=== PATIENT | female | born 1930 | race Hispanic/Latino ===

== ENCOUNTER 2016-10-25 11:39 | Emergency (ER) | payer MEDICARE, BC ==
[2016-10-25] MEDS ORDERED: Sodium Chloride 0.9% 1,000 ML IV STA (12:06)
--- NOTE | 2016-10-25 12:26 | ED PDOC ---
Syncope/Near Syncope/Dizziness Time Seen by Provider: 10/25/16 12:01 Chief Complaint (Nursing): Dizziness/Lightheaded Chief Complaint (Provider): dizzy History Per: Patient History/Exam Limitations: no limitations Onset/Duration Of Symptoms: Days (3), Intermittent Episodes Current Symptoms Are (Timing): Intermittent Episodes Activity At Onset Of Symptoms: Standing Associated Symptoms Preceding Syncopal Episode: Lightheadedness, Worse With Standing, Vertigo Worse With Change In Head Position Seizure Or Post-ictal Symptoms: None Possible Causative Factor(s): Lightheaded W/Change In Head Position Fall Associated With With Symptoms: No Severity: Moderate Additional Complaint(s): 86yo female c/o dizziness described as "almost passed out" with some element of motion/ room spinning. States feels similar to how she felt before her pacemaker was placed several years ago. She has been taking ultracet and took an extra dose of coreg today due to symptoms. States had mild chest discomfort yesterday, denies SOB, abdominal pain or fever. Has chronic lower extremity pains for which ambulating is becoming more difficult and now feels unsteady on her legs. Past Medical History Reviewed: Historical Data, Nursing Documentation, Vital Signs Vital Signs: Last Vital Signs Temp 99.3 F 10/25/16 11:48 Pulse 70 10/25/16 11:48 Resp 18 10/25/16 11:48 BP 161/107 H 10/25/16 11:48 Pulse Ox 100 10/25/16 11:48 - Medical History PMH: Arthritis, Cardia Arrhythmia, HTN - Surgical History Surgical History: Denies: CABG Other surgeries: pacer, port placement, hysterectomy, other abdominal surgeries ; denies CABG - Family History Family History: States: Unknown Family Hx - Social History Current smoker - smoking cessation education provided: No - Home Medications Home Medications: Ambulatory Orders Medication Instructions Recorded Aspirin [Ecotrin] 81 mg PO DAILY 10/25/16 Carvedilol [Coreg Cr] 40 mg PO DAILY 10/25/16 Ergocalciferol (Vitamin D2) 50,000 unit PO TH 10/25/16 [Vitamin D2] Fesoterodine Fumarate [Toviaz] 4 mg PO DAILY 10/25/16 Latanoprost [Xalatan] 1 drop EACHEYE HS 10/25/16 Linagliptin [Tradjenta] 5 mg PO DAILY 10/25/16 Lisinopril [Zestril] 20 mg PO DAILY 10/25/16 Rosuvastatin Calcium [Crestor] 10 mg PO DAILY 10/25/16 traMADol/Acetaminophen [Ultracet 1 tab PO TID 10/25/16 37.5/325 mg] - Allergies Allergies/Adverse Reactions: Allergies Allergy/AdvReac Type Severity Reaction Status Date / Time Penicillins Allergy RASH Verified 10/25/16 11:48 Review of Systems Constitutional: Positive for: Weakness, Malaise. Negative for: Fever, Chills ENT: Negative for: Ear Discharge, Throat Pain Cardiovascular: Positive for: Palpitations, Light Headedness. Negative for: Chest Pain, Orthopnea Respiratory: Negative for: Cough, Shortness of Breath, Hemoptysis Gastrointestinal: Positive for: Nausea. Negative for: Vomiting, Abdominal Pain , Diarrhea Genitourinary Female: Negative for: Dysuria, Frequency, Hematuria Musculoskeletal: Positive for: Arm Pain, Back Pain, Leg Pain. Negative for: Neck Pain, Shoulder Pain Skin: Negative for: Rash, Lesions, Jaundice Neurological: Positive for: Weakness (generalized), Dizziness. Negative for: Numbness, Change in Speech, Confusion, Altered Mental Status, Headache Psych: Positive for: Anxiety. Negative for: Depression Physical Exam - Reviewed Nursing Documentation Reviewed: Yes Vital Signs Reviewed: Yes - Physical Exam Appears: Positive for: Well, Non-toxic, No Acute Distress Head Exam: Positive for: ATRAUMATIC, NORMAL INSPECTION, NORMOCEPHALIC Skin: Positive for: Normal Color, Warm, DRY Eye Exam: Positive for: EOMI, Normal appearance, PERRL ENT: Positive for: Normal ENT Inspection Neck: Positive for: Normal, Painless ROM Cardiovascular/Chest: Positive for: Regular Rate, Rhythm Respiratory: Positive for: CNT, Normal Breath Sounds Gastrointestinal/Abdominal: Positive for: Normal Exam, Bowel Sounds, Soft Back: Positive for: Normal Inspection Extremity: Positive for: Normal ROM Neurologic/Psych: Positive for: Alert, Oriented - Laboratory Results Result Diagrams: 10/25/16 12:50 10/25/16 12:50 - ECG ECG: Positive for: Interpreted By Me ECG Rhythm: Positive for: Nonspecific Changes Interpretation Of Abn EKG: ventric paced 70bpm O2 Sat by Pulse Oximetry: 100 Pulse Ox Interpretation: Normal - CT Scan/US CT brain Other Rad Studies (CT/US): Radiology Report Reviewed (neg for bleed, + chronic changes) Medical Decision Making Medical Decision Making: CT brain, labs and EKG ordered. Gentle IVF and meclizine trial ordered. labs reviewed, no clinically significant abnormalities. Ambulated in ED w resolution of symptoms. States has chronic pains to lower extremities which makes her at chronic risk of falls. D/w PMD Dr Horn states ok for discharge, she often has c/o dizziness and he will see her in office sunday. Pt agrees w plan. Family member Prashanth in ED, will accompany home. Disposition - Clinical Impression Clinical Impression: Dizziness - Disposition Referrals: Ramsey Horn MD [Family Provider] - Condition: STABLE Additional Instructions: Return to ER for any new or worsening symptoms. Instructions: Lightheadedness (ED), Dizziness (ED)
[2016-10-25 12:59] LABS: BASO % 0.2 % (0.0-2.0); HEMOGLOBIN 13.8 g/dL (12.0-16.0); LYMPH # 1.4 K/uL (1.0-4.3); LYMPH % 15.5 % (20.0-40.0); MEAN CELL VOLUME 89.4 fl (81.0-99.0); MEAN CORPUSCULAR HEMOGLOBIN 29.5 pg (27.0-31.0); MEAN PLATELET VOLUME 8.8 fl (7.2-11.7); MONO # 0.8 K/uL (0.0-0.8); MONO % 8.6 % (0.0-10.0); NEUT # 6.7 K/uL (1.8-7.0); NEUT % 75.7 % (50.0-75.0); RBC 4.67 Mil/uL (3.80-5.20); RED CELL DISTRIBUTION WIDTH 14.3 % (11.5-14.5); WHITE BLOOD COUNT 8.8 K/uL (4.8-10.8)
[2016-10-25 13:15] LABS: ALB/GLOB RATIO 1.3 (1.0-2.1); ALBUMIN 4.2 g/dL (3.5-5.0); ALT/SGPT 32 U/L (9-52); AST/SGOT 20 U/L (14-36); BLOOD UREA NITROGEN 17 mg/dl (7-17); CALCIUM 9.8 mg/dL (8.4-10.2); GFR AFRICAN-AMERICAN > 60; GFR NON-AFRICAN AMERICAN 59
[2016-10-25 13:24] LABS: B-TYPE NATRIURETIC PEPTIDE 788 pg/ml (0-900); INR 1.1 (0.9-1.2); PARTIAL THROMBOPLASTIN TIME 28.4 Seconds (25.6-37.1); PROTHROMBIN TIME 12.8 Seconds (9.8-13.1)
--- NOTE | 2016-10-25 13:45 | CT ---
PROCEDURE: CT HEAD WITHOUT CONTRAST. HISTORY: r/o ICH COMPARISON: None available. TECHNIQUE: Axial computed tomography images were obtained through the head/brain without intravenous contrast. Radiation dose: Total exam DLP = 767.27 mGy-cm. This CT exam was performed using one or more of the following dose reduction techniques: Automated exposure control, adjustment of the mA and/or kV according to patient size, and/or use of iterative reconstruction technique. FINDINGS: HEMORRHAGE: No intracranial hemorrhage. BRAIN: There are mild chronic microangiopathic changes. There is no mass, mass effect or abnormal extra-axial fluid collection. VENTRICLES: There is moderate age-related global parenchymal volume loss and proportionate enlargement of the ventricles and cortical sulci. CALVARIUM: The skull base and calvarium are normal. PARANASAL SINUSES: Predominantly clear. MASTOID AIR CELLS: Predominantly clear. OTHER FINDINGS: None. IMPRESSION: No acute intracranial abnormality. Mild chronic microangiopathic changes and mild age-related global parenchymal volume loss.
--- NOTE | 2016-10-25 14:02 | RAD ---
HISTORY: Dizziness COMPARISON: No prior. TECHNIQUE: Chest PA and lateral FINDINGS: LUNGS: There is mild pulmonary venous congestion. No focal consolidation. PLEURA: No significant pleural effusion identified. No pneumothorax apparent. CARDIOVASCULAR: The heart is normal in size. There is a right-sided dual lead transvenous permanent pacing device. OSSEOUS STRUCTURES: No significant abnormalities. VISUALIZED UPPER ABDOMEN: Normal. OTHER FINDINGS: None. IMPRESSION: Mild pulmonary venous congestion. No focal consolidation.
[2016-10-25 15:48] LABS: SQUAMOUS EPITHIAL 4 /hpf (0-5); URINE BACTERIA MANY (<OCC); URINE BILIRUBIN NEGATIVE (NEGATIVE); URINE BLOOD LARGE (NEGATIVE); URINE CLARITY CLOUDY (Clear); URINE COLOR YELLOW (YELLOW); URINE GLUCOSE (UA) NEG (Normal); URINE LEUKOCYTE ESTERASE LARGE Leu/uL (Negative); URINE NITRATE NEGATIVE (NEGATIVE); URINE PROTEIN 30 mg/dL (NEGATIVE); URINE UROBILINOGEN 0.2-1.0 mg/dL (0.2-1.0)
--- NOTE | 2016-10-25 16:11 | CARD ---
APPROVED REPORT EKG Measurement Heart [id number] [id number] <Conclusion> Sinus rhythm with complete heart block and Ventricular-paced rhythm Abnormal ECG
[2016-10-25 16:25] VITALS: BP 129/76; PULSE 81; RESP 16; TEMP 97.9; O2SAT 97
== END 2016-10-25 16:25 | disposition home or self-care (01) ==
LOC: H.ER 11:39
DX: R42 Dizziness and giddiness (principal)
CPT/HCPCS: 70450; 71020; 80053; 81003; 82948; 83880; 84484; 85025; 85610; 85730; 93005; 99282; J7040

== ENCOUNTER 2017-04-30 06:49 | Inpatient (IN) | payer MEDICARE, BC ==
--- NOTE | 2017-04-30 07:31 | ED PDOC ---
HPI: Chest Pain Time Seen by Provider: 04/30/17 07:11 Chief Complaint (Nursing): Chest Pain Chief Complaint (Provider): Chest Pain History Per: Patient History/Exam Limitations: no limitations Onset/Duration Of Symptoms: Days (x 1) Current Symptoms Are (Timing): Still Present Quality: Pressure Additional Complaint(s): 86 year old female with history of HTN s/p pacemaker placement presents to the ED complaining of chest pain, onset last night. She describes the pain as pressure like and spreading across her chest. Patient states she is due for a battery change in her pacemaker. Denies shortness of breath and dizziness. PMD: Dr. Ramsey Horn MD Past Medical History Reviewed: Historical Data, Nursing Documentation, Vital Signs Vital Signs: Last Vital Signs Temp 97.6 F 04/30/17 08:15 Pulse 113 H 04/30/17 08:44 Resp 20 04/30/17 08:44 BP 143/65 04/30/17 08:44 Pulse Ox 95 04/30/17 08:47 - Medical History PMH: Arthritis, Cardia Arrhythmia, HTN - Surgical History Surgical History: Pacemaker Denies: CABG - Family History Family History: States: Unknown Family Hx - Home Medications Home Medications: Ambulatory Orders Medication Instructions Recorded Aspirin [Ecotrin] 81 mg PO DAILY 10/25/16 Carvedilol [Coreg Cr] 40 mg PO DAILY 10/25/16 Ergocalciferol (Vitamin D2) 50,000 unit PO TH 10/25/16 [Vitamin D2] Fesoterodine Fumarate [Toviaz] 4 mg PO DAILY 10/25/16 Latanoprost [Xalatan] 1 drop EACHEYE HS 10/25/16 Linagliptin [Tradjenta] 5 mg PO DAILY 10/25/16 Lisinopril [Zestril] 20 mg PO DAILY 10/25/16 Rosuvastatin Calcium [Crestor] 10 mg PO DAILY 10/25/16 traMADol/Acetaminophen [Ultracet 1 tab PO TID 10/25/16 37.5/325 mg] - Allergies Allergies/Adverse Reactions: Allergies Allergy/AdvReac Type Severity Reaction Status Date / Time Penicillins Allergy RASH Verified 10/25/16 11:48 Review of Systems ROS Statement: Except As Marked, All Systems Reviewed And Found Negative Cardiovascular: Positive for: Chest Pain Respiratory: Negative for: Shortness of Breath Neurological: Negative for: Dizziness Physical Exam - Reviewed Nursing Documentation Reviewed: Yes Vital Signs Reviewed: Yes - Physical Exam Appears: Positive for: Non-toxic, No Acute Distress Head Exam: Positive for: ATRAUMATIC, NORMOCEPHALIC Skin: Positive for: Normal Color, Warm, Dry Eye Exam: Positive for: EOMI, Normal appearance, PERRL Neck: Positive for: Normal, Painless ROM, Supple Cardiovascular/Chest: Positive for: Bradycardia (at 35 bpm) Respiratory: Positive for: CNT, Normal Breath Sounds (bilaterally) Gastrointestinal/Abdominal: Positive for: Normal Exam, Soft. Negative for: Tenderness Extremity: Positive for: Normal ROM. Negative for: Tenderness, Swelling Neurologic/Psych: Positive for: Alert, Oriented (x 3) - Laboratory Results Result Diagrams: 04/30/17 07:15 04/30/17 07:15 - ECG O2 Sat by Pulse Oximetry: 95 Medical Decision Making Medical Decision Making: Time: 07:23 Initial Plan: --EKG --CMP --Drug screen --Troponin --Urine dipstick --CBC --Chest X-ray --Atropine .5 mg IVP --Atropine 1 mg IVP --Atropine .5 mg IVP EKG revealed bradycardic rhythm with 3 to 1 block. Patient was treated with atropine. Total 2 mg with persistence of bradycardia. BP 171/78. External pacemaker applied with no capture. 08:45 --Consulted with Dr. Jose Fong who will take pt to OR this am for permanent pacemaker battery change. Chest pain improving. Hemodynamically stable. Will hold off on temporary pacemaker as patient is going to OR. Scribe Attestation: Documented by Lois Hurst, acting as a scribe for Reji Dempsey MD Provider Scribe Attestation: All medical record entries made by the Scribe were at my direction and personally dictated by me. I have reviewed the chart and agree that the record accurately reflects my personal performance of the history, physical exam, medical decision making, and the department course for this patient. I have also personally directed, reviewed, and agree with the discharge instructions and disposition. Disposition - Clinical Impression Clinical Impression: Chest pain, Heart block AV third degree, NSTEMI (non-ST elevated myocardial infarction) - Patient ED Disposition Is Patient to be Admitted: Yes - Disposition Disposition Time: 08:50 Condition: GUARDED Forms: [employer] (Slovenian) - Pt Status Changed To: Hospital Disposition Of: Inpatient - Admit Certification Admit to Inpatient:: After my assessment, the patient will require hospitalization for at least two midnights. This is because of the severity of symptoms shown, intensity of services needed, and/or the medical risk in this patient being treated as an outpatient. - POA Present On Arrival: None
[2017-04-30 07:45] LABS: ALB/GLOB RATIO 1.3 (1.0-2.1); ALBUMIN 3.9 g/dL (3.5-5.0); ALT/SGPT 96 U/L (9-52); AST/SGOT 52 U/L (14-36); BLOOD UREA NITROGEN 23 mg/dl (7-17); CALCIUM 9.9 mg/dL (8.4-10.2); GFR AFRICAN-AMERICAN > 60; GFR NON-AFRICAN AMERICAN 59
[2017-04-30 07:51] LABS: BASO % 0.2 % (0.0-2.0); LYMPH # 1.3 K/uL (1.0-4.3); LYMPH % 14.2 % (20.0-40.0); MEAN CELL VOLUME 88.7 fl (81.0-99.0); MEAN CORPUSCULAR HEMOGLOBIN 29.9 pg (27.0-31.0); MEAN CORPUSCULAR HGB CONC 33.6 g/dL (33.0-37.0); MEAN PLATELET VOLUME 9.5 fl (7.2-11.7); MONO # 0.6 K/uL (0.0-0.8); MONO % 6.2 % (0.0-10.0); NEUT # 7.2 K/uL (1.8-7.0); NEUT % 79.4 % (50.0-75.0); NRBC % 0.1 % (0.0-0.0); RBC 4.37 Mil/uL (3.80-5.20); RED CELL DISTRIBUTION WIDTH 14.4 % (11.5-14.5)
--- NOTE | 2017-04-30 08:45 | RAD ---
HISTORY: cough COMPARISON: Chest radiographs 10/25/2016. FINDINGS: Prior pacemaker unchanged in position with external pacemaker apparently added in the interval. LUNGS: No active pulmonary disease. PLEURA: No significant pleural effusion identified, no pneumothorax apparent. CARDIOVASCULAR: Normal. OSSEOUS STRUCTURES: No significant abnormalities. VISUALIZED UPPER ABDOMEN: Normal. OTHER FINDINGS: None. IMPRESSION: No acute infiltrate pleural effusion or pneumothorax identified bilaterally. External pacemaker now identified with prior implanted pacemaker unchanged in appearance.
[2017-04-30 09:50] LABS: INR 1.1 (0.9-1.2); PROTHROMBIN TIME 12.5 Seconds (9.8-13.1)
[2017-04-30] MEDS ORDERED: Midazolam 2 MG/2 ML VIAL ONE (10:00)
[2017-04-30] MEDS ORDERED: HYDROmorphone 0.5 mg/0.5 ml ISec IVP STA (10:09)
[2017-04-30] MEDS ORDERED: Liquid Adhesive TOP ONE (10:23)
[2017-04-30] MEDS ORDERED: Iohexol 300 10 ML ONE (10:27)
[2017-04-30] MEDS ORDERED: ePHEDrine 50 mg/ml Inj ONE (11:10)
[2017-04-30] MEDS ORDERED: Lidocaine 1% Inj (20ml) ONE (11:11)
[2017-04-30] MEDS ORDERED: Sodium Chloride 0.9% 500 ML IV ONE (11:33)
[2017-04-30] MEDS ORDERED: Lactated Ringer's 1,000 ML IV SCH (12:15)
--- NOTE | 2017-04-30 14:54 | CP.PCM.CON ---
History of Present Illness - History of Present Illness History of Present Illness: CC: Chest pain, weakness. HPI: I have been requested on cardiology cosultation by Dr. Broderick on Ms. Enriquez who is an 86 year old female with a PMH of hypertension, CVA and PPM who is follow by Dr. Diego Robles as an outpatient. She is evaluated for complaints of intermittent chest pain, weakness and dyspnea. She is noted to have CHB for which cardiology is consulted. The patient was advised at her last evaluation that the pacemaker battery was nearing end of life and may need a battery change. Dr. Caceres was consulted emergently for pacemaker battery change which was performed successfully. Currently the patient is resting in the ICU, lethargic but without any further chest pain. She has remained hemodynamically stable. Labs reveal mildly elevated troponin. Review of Systems - Constitutional Constitutional: Fatigue, Lethargy, Malaise, Weakness - EENT Eyes: absent: Blurred Vision Ears: absent: Dizziness Nose/Mouth/Throat: absent: Dysphagia - Cardiovascular Cardiovascular: absent: Chest Pain, Dyspnea, Orthopnea, Palpitations, Syncope - Respiratory Respiratory: absent: Cough, Dyspnea, Wheezing, Excessive Mucous Production - Gastrointestinal Gastrointestinal: absent: Abdominal Pain, Bloating, Constipation, Diarrhea, Dysphagia - Genitourinary Genitourinary: absent: Dysuria - Musculoskeletal Musculoskeletal: Muscle Weakness. absent: Myalgias - Integumentary Integumentary: absent: Rash, Swelling - Neurological Neurological: Focal Weakness, Weakness. absent: Dizziness, Syncope - Psychiatric Psychiatric: absent: Anxiety - Endocrine Endocrine: Fatigue - Hematologic/Lymphatic Hematologic: Easy Bleeding. absent: Easy Bruising Past Patient History - Past Social History Smoking Status: Never Smoked - CARDIAC Hx Cardiac Disorders: Yes Hx Angina: No Hx Pacemaker: Yes - PULMONARY Hx Respiratory Disorders: No - NEUROLOGICAL Hx Neurological Disorder: Yes Other/Comment: CVA - HEENT Hx HEENT Problems: No - RENAL Hx Chronic Kidney Disease: No - ENDOCRINE/METABOLIC Hx Endocrine Disorders: No - HEMATOLOGICAL/ONCOLOGICAL Hx Blood Disorders: No - INTEGUMENTARY Hx Dermatological Problems: No - MUSCULOSKELETAL/RHEUMATOLOGICAL Hx Musculoskeletal Disorders: Yes - GASTROINTESTINAL Hx Gastrointestinal Disorders: No - GENITOURINARY/GYNECOLOGICAL Hx Genitourinary Disorders: Yes - PSYCHIATRIC Hx Emotional Abuse: No Hx Physical Abuse: No - SURGICAL HISTORY Hx Coronary Artery Bypass Graft: No - ANESTHESIA Hx Anesthesia: No Meds Allergies/Adverse Reactions: Allergies Allergy/AdvReac Type Severity Reaction Status Date / Time Penicillins Allergy RASH Verified 10/25/16 11:48 - Medications Medications: Current Medications Enoxaparin Sodium (Lovenox) 30 mg SC DAILY [facility] PRN Reason: Protocol Lactated Ringer's (Lactated Ringer's) 1,000 mls @ 40 mls/hr IV .Q24H [facility] Physical Exam - Constitutional Appears: Well, Non-toxic, No Acute Distress - Head Exam Head Exam: ATRAUMATIC, NORMAL INSPECTION, NORMOCEPHALIC - Eye Exam Eye Exam: Normal appearance, PERRL Pupil Exam: PERRL - ENT Exam ENT Exam: Mucous Membranes Moist - Neck Exam Neck exam: Positive for: Normal Inspection - Respiratory Exam Respiratory Exam: Clear to Auscultation Bilateral, NORMAL BREATHING PATTERN. absent: Rales, Rhonchi, Wheezes - Cardiovascular Exam Cardiovascular Exam: REGULAR RHYTHM, +S1, +S2, Systolic Murmur - GI/Abdominal Exam GI & Abdominal Exam: Normal Bowel Sounds, Soft. absent: Distended, Guarding - Rectal Exam Rectal Exam: Deferred - Extremities Exam Extremities exam: Positive for: normal inspection Additional comments: RLE weakness. - Back Exam Back exam: NORMAL INSPECTION - Neurological Exam Neurological exam: Alert, Motor Sensory Deficit, Oriented x3 - Psychiatric Exam Psychiatric exam: Normal Affect - Skin Skin Exam: Intact, Normal Color, Warm Additional comments: PPM incision dressed. Results - Vital Signs Recent Vital Signs: Last Vital Signs Temp 99 F 04/30/17 13:50 Pulse 78 04/30/17 13:50 Resp 22 04/30/17 13:50 BP 150/95 H 04/30/17 13:50 Pulse Ox 97 04/30/17 13:50 - Labs Result Diagrams: 04/30/17 07:15 04/30/17 07:15 Labs: Laboratory Results - last 24 hr 04/30/17 04/30/17 04/30/17 07:15 07:15 09:28 WBC 9.0 RBC 4.37 Hgb 13.0 Hct 38.8 MCV 88.7 MCH 29.9 MCHC 33.6 RDW 14.4 Plt Count 217 MPV 9.5 Neut % (Auto) 79.4 H Lymph % (Auto) 14.2 L Forrest % (Auto) 6.2 Eos % (Auto) 0.0 Baso % (Auto) 0.2 Neut # 7.2 H Lymph # 1.3 Forrest # 0.6 Eos # 0.0 Baso # 0.0 PT 12.5 INR 1.1 Sodium 143 Potassium 4.1 Chloride 108 H Carbon Dioxide 25 Anion Gap 14 BUN 23 H Creatinine 0.9 Est GFR ( Amer) > 60 Est GFR (Non-Af Amer) 59 POC Glucose (mg/dL) Random Glucose 115 H Calcium 9.9 Total Bilirubin 1.7 H AST 52 H ALT 96 H D Alkaline Phosphatase 72 Troponin I 0.2630 H* Total Protein 7.0 Albumin 3.9 Globulin 3.0 Albumin/Globulin Ratio 1.3 04/30/17 12:04 WBC RBC Hgb Hct MCV MCH MCHC RDW Plt Count MPV Neut % (Auto) Lymph % (Auto) Forrest % (Auto) Eos % (Auto) Baso % (Auto) Neut # Lymph # Forrest # Eos # Baso # PT INR Sodium Potassium Chloride Carbon Dioxide Anion Gap BUN Creatinine Est GFR ( Amer) Est GFR (Non-Af Amer) POC Glucose (mg/dL) 94 Random Glucose Calcium Total Bilirubin AST ALT Alkaline Phosphatase Troponin I Total Protein Albumin Globulin Albumin/Globulin Ratio Assessment & Plan - Assessment and Plan (Free Text) Assessment: Complete heart block PPM at EOL HTN NSTEMI, possibly due to CHB Plan: Continue present medical management Monitor troponin Start beta andre - Date & Time Date: 04/30/17 Time: 21:59
--- NOTE | 2017-04-30 15:42 | CP.CCUPN ---
CCU Subjective - Physician Review Subjective (Free Text): 04/30/17 19:18 The patient was Seen/interviewed and examined by me at the bedside during ICU round, Medical records reviewed and Management issues were discussed and formulated with the house staff. Events reviewed 86 Years old Female with PMHx of HTN, Arthritis and Cardia Arrhythmia Admitted to the ICU following PPM battery change, she initially presented to the Emergency department for pressure like chest pain and spreading across her chest and Dizzness Found to have complete heart block and NSTMI with positive Trop and no acute EKG changes Clinically and hemodynamically stable No Vasopressors Awake, comfortable, NAD Pt AAO x3. Alert, follows commands, Pt she feels well post PPM battery change, Denies any chest pain, SOB or Palpitations Afebrile, paced rhythm on the monitor RN stated that Pt admits to thoughts of suicide in the past but never acted on it "because of her moravian" also that states I don't believe in psychiatrists " However on my discussion with the patient she is confused, denies all thoughts of suicidal RN also stated that Pt request no intubation or CPR, Pt again confused does not fully understand the process of resuscitation, she is asking when is she going home but when I ask why she has no reason, I explain to her that her health is more important then taking care of home at this point. Family at the bedside unaware of any living well, and ever if she has at home he does not know where to look. Critical Care Time Spent (in minutes): 52 CCU Objective - Vital Signs / Intake & Output Vital Signs (Last 4 hours): Vital Signs Temp Pulse Pulse Resp BP Pulse Ox 04/30/17 14:51 78 22 97 04/30/17 13:50 99 F 78 22 150/95 H 97 04/30/17 13:40 81 18 158/93 H 97 04/30/17 13:15 84 18 168/88 H 97 04/30/17 13:00 82 18 176/90 H 97 04/30/17 12:30 85 18 160/90 H 98 04/30/17 12:15 84 18 151/102 H 96 04/30/17 12:00 97.6 F 96 H 18 159/109 H 95 Intake and Output (Last 8hrs): Intake & Output 04/30/17 04/30/17 04/30/17 06:59 14:59 22:59 Intake Total 630 Balance 630 Weight 150 lb Intake: IV 430 Oral 200 Other: Voiding Method Toilet - Physical Exam Head: Positive for: Atraumatic, Normocephalic Pupils: Positive for: PERRL. Negative for: Sluggish, Non-Reactive Extroacular Muscles: Positive for: EOMI Conjunctiva: Positive for: Normal. Negative for: Injected, Icteric Mouth: Positive for: Moist Mucous Membranes Nose (Internal): Positive for: Normal Inspection Neck: Positive for: Normal Range of Motion, Trachea Midline. Negative for: Meningeal Signs, MIDLINE TENDERNESS, Paraspinal Tenderness, JVD, Lymphadenopathy , Bruit, Other Respiratory/Chest: Positive for: Clear to Auscultation, Good Air Exchange. Negative for: Respiratory Distress, Accessory Muscle Use, Wheezes, Rales, Retracting, Rhonchi, Tachypneic Cardiovascular: Positive for: Regular Rate and Rhythm, Normal S1, S2, Peripheal Pulses Present. Negative for: Tachycardic, Bradycardic Abdomen: Positive for: Normal Bowel Sounds. Negative for: Tenderness, Distention Upper Extremity: Positive for: Normal Inspection, NORMAL PULSES, Capillary Refill < 2s, Norm 2-Pt Discrimination. Negative for: Cyanosis, Edema Lower Extremity: Positive for: NORMAL PULSES, Normal ROM, Erythema (Bilateral back of legs ). Negative for: Edema, CALF TENDERNESS, Cyanosis, Tenderness, Swelling Neurological: Positive for: GCS=15, CN II-XII Intact, Speech Normal, Motor Func Grossly Intact, Normal Sensory Function Psychiatric: Positive for: Alert, Oriented x 3 - Medications Active Medications: Active Medications Generic Name Dose Route Start Last Admin Trade Name Yousufq PRN Reason Stop Dose Admin Enoxaparin Sodium 30 mg 04/30/17 15:00 Lovenox SC DAILY [facility] Protocol Lactated Ringer's 1,000 mls @ 40 mls/hr 04/30/17 12:15 Lactated Ringer's IV .Q24H JEREMI - Patient Studies Lab Studies: Lab Studies 04/30/17 04/30/17 04/30/17 Range/Units 12:04 09:28 07:15 WBC (4.8-10.8) K/uL RBC (3.80-5.20) Mil/uL Hgb (12.0-16.0) g/dL Hct (34.0-47.0) % MCV (81.0-99.0) fl MCH (27.0-31.0) pg MCHC (33.0-37.0) g/dL RDW (11.5-14.5) % Plt Count (130-400) K/uL MPV (7.2-11.7) fl Neut % (Auto) (50.0-75.0) % Lymph % (Auto) (20.0-40.0) % [place] % (Auto) (0.0-10.0) % Eos % (Auto) (0.0-4.0) % Baso % (Auto) (0.0-2.0) % Neut # (1.8-7.0) K/uL Lymph # (1.0-4.3) K/uL [place] # (0.0-0.8) K/uL Eos # (0.0-0.7) K/uL Baso # (0.0-0.2) K/uL PT 12.5 (9.8-13.1) Seconds INR 1.1 (0.9-1.2) Sodium 143 (132-148) mmol/l Potassium 4.1 (3.6-5.0) MMOL/L Chloride 108 H (98-107) mmol/L Carbon Dioxide 25 (22-30) mmol/L Anion Gap 14 (10-20) BUN 23 H (7-17) mg/dl Creatinine 0.9 (0.7-1.2) mg/dl Est GFR ( Amer) > 60 Est GFR (Non-Af Amer) 59 POC Glucose (mg/dL) 94 (65-110) mg/dL Random Glucose 115 H (65-105) mg/dL Calcium 9.9 (8.4-10.2) mg/dL Total Bilirubin 1.7 H (0.2-1.3) mg/dl AST 52 H (14-36) U/L ALT 96 H D (9-52) U/L Alkaline Phosphatase 72 (38-126) U/L Troponin I 0.2630 H* (0.00-0.120) ng/mL Total Protein 7.0 (6.3-8.2) G/DL Albumin 3.9 (3.5-5.0) g/dL Globulin 3.0 (2.2-3.9) gm/dL Albumin/Globulin Ratio 1.3 (1.0-2.1) 04/30/17 Range/Units 07:15 WBC 9.0 (4.8-10.8) K/uL RBC 4.37 (3.80-5.20) Mil/uL Hgb 13.0 (12.0-16.0) g/dL Hct 38.8 (34.0-47.0) % MCV 88.7 (81.0-99.0) fl MCH 29.9 (27.0-31.0) pg MCHC 33.6 (33.0-37.0) g/dL RDW 14.4 (11.5-14.5) % Plt Count 217 (130-400) K/uL MPV 9.5 (7.2-11.7) fl Neut % (Auto) 79.4 H (50.0-75.0) % Lymph % (Auto) 14.2 L (20.0-40.0) % [place] % (Auto) 6.2 (0.0-10.0) % Eos % (Auto) 0.0 (0.0-4.0) % Baso % (Auto) 0.2 (0.0-2.0) % Neut # 7.2 H (1.8-7.0) K/uL Lymph # 1.3 (1.0-4.3) K/uL Kings[place] # 0.6 (0.0-0.8) K/uL Eos # 0.0 (0.0-0.7) K/uL Baso # 0.0 (0.0-0.2) K/uL PT (9.8-13.1) Seconds INR (0.9-1.2) Sodium (132-148) mmol/l Potassium (3.6-5.0) MMOL/L Chloride (98-107) mmol/L Carbon Dioxide (22-30) mmol/L Anion Gap (10-20) BUN (7-17) mg/dl Creatinine (0.7-1.2) mg/dl Est GFR ( Amer) Est GFR (Non-Af Amer) POC Glucose (mg/dL) (65-110) mg/dL Random Glucose (65-105) mg/dL Calcium (8.4-10.2) mg/dL Total Bilirubin (0.2-1.3) mg/dl AST (14-36) U/L ALT (9-52) U/L Alkaline Phosphatase (38-126) U/L Troponin I (0.00-0.120) ng/mL Total Protein (6.3-8.2) G/DL Albumin (3.5-5.0) g/dL Globulin (2.2-3.9) gm/dL Albumin/Globulin Ratio (1.0-2.1) Laboratory Results - last 24 hr 04/30/17 04/30/17 04/30/17 07:15 07:15 09:28 WBC 9.0 RBC 4.37 Hgb 13.0 Hct 38.8 MCV 88.7 MCH 29.9 MCHC 33.6 RDW 14.4 Plt Count 217 MPV 9.5 Neut % (Auto) 79.4 H Lymph % (Auto) 14.2 L [place] % (Auto) 6.2 Eos % (Auto) 0.0 Baso % (Auto) 0.2 Neut # 7.2 H Lymph # 1.3 Kings[place] # 0.6 Eos # 0.0 Baso # 0.0 PT 12.5 INR 1.1 Sodium 143 Potassium 4.1 Chloride 108 H Carbon Dioxide 25 Anion Gap 14 BUN 23 H Creatinine 0.9 Est GFR ( Amer) > 60 Est GFR (Non-Af Amer) 59 POC Glucose (mg/dL) Random Glucose 115 H Calcium 9.9 Total Bilirubin 1.7 H AST 52 H ALT 96 H D Alkaline Phosphatase 72 Troponin I 0.2630 H* Total Protein 7.0 Albumin 3.9 Globulin 3.0 Albumin/Globulin Ratio 1.3 04/30/17 12:04 WBC RBC Hgb Hct MCV MCH MCHC RDW Plt Count MPV Neut % (Auto) Lymph % (Auto) [place] % (Auto) Eos % (Auto) Baso % (Auto) Neut # Lymph # [place] # Eos # Baso # PT INR Sodium Potassium Chloride Carbon Dioxide Anion Gap BUN Creatinine Est GFR ( Amer) Est GFR (Non-Af Amer) POC Glucose (mg/dL) 94 Random Glucose Calcium Total Bilirubin AST ALT Alkaline Phosphatase Troponin I Total Protein Albumin Globulin Albumin/Globulin Ratio EKG/Cardiology Studies: Cardiology / EKG Studies 04/30/17 EKG [ELECTROCARDIOGRAM] Routine Comment: Mode Of Transportation: PORTABLE Reason For Exam: post ppm change 04/30/17 07:23 ELECTROCARDIOGRAM Stat Comment: Mode Of Transportation: Reason For Exam: chest pain Fingerstick Blood Sugar Results: 94 Review of Systems - Cardiovascular Cardiovascular: absent: Chest Pain, Chest Pain at Rest, Chest Pain with Activity , Claudication - Respiratory Respiratory: absent: Cough, Dyspnea, Hemoptysis, Dyspnea on Exertion, Wheezing Critical Care Progress Note - Extremities/Vascular Does the Patient have a Central Venous Catheter?: No Does the Patient need a Central Venous Catheter?: No Does the Patient have a Camara Catheter?: No Does the Patient need a Camara Catheter?: No - Nutrition Nutrition: Nutrition Category Date Time Status Heart Healthy Diet [DIET] Diets 04/30/17 Dinner Active Assessment/Plan (1) Chest pain Current Visit: Yes Status: Acute (2) Heart block AV third degree Current Visit: Yes Status: Acute (3) NSTEMI (non-ST elevated myocardial infarction) Current Visit: Yes Status: Acute (4) Dizziness Current Visit: No Status: Acute (5) Essential hypertension Current Visit: Yes Status: Acute - Assessment and Plan (Free Text) Assessment: Admit to ICU for hemodynamic and cardiac monitoring LABS/LYTES/CBC/serial Trop Monitor Respiratory status PRN Xanax IV Hydration Monitor urine output Restart outpatient meds including B Leda, ASA BD nebs Q 6H PRN PRN Ondansetron Maintain aspiration precautions GI/DVT PPX with SCDs, SQH, LMWH
[2017-04-30] MEDS: Enoxaparin 30 mg Syringe SC SCH (17:14)
--- NOTE | 2017-04-30 23:23 | OP ---
PROCEDURE DATE: 04/30/2017 PROCEDURE: Dual-chamber permanent pacemaker generator change. DIAGNOSES: 1. Complete heart block. 2. Dual-chamber permanent pacemaker elective replacement indicator. BRIEF HISTORY: Ms. Aurea Enriquez is an 86-year-old female with past medical history significant for hypertension, status post permanent pacemaker, coronary artery disease, status post percutaneous intervention, who presents to [facility] with chest pain and shortness of breath, which has been occurring over the last week, but worsening last night. She was found to have a pressure type pain across her chest, found to be in complete heart block with heart rate in the 30s and a nonfunctional Arsh permanent pacemaker. Case was reviewed and discussed with Dr. Fong. The patient was seen and examined. It was felt the patient required an emergent permanent pacemaker generator change. In the emergency department, the patient did undergo evaluation and management, did receive atropine, which did cause her to be tachycardic. With tachycardia, the patient did have chest pressure. In addition, the patient was found to have low positive cardiac biomarkers, being that the heart rate was the major issue. It was felt that this needed to be manage first in an emergent basis. Informed consent was received from the patient. Also discussions were held with the patient's cousin, who is the next of kin. PROCEDURE IN DETAIL: The right pectoral area was draped and prepped in a sterile fashion. A 2% lidocaine solution was injected into the surgical site. The patient did undergo anesthesia as per the anesthesia department. The lead system and device were interrogated under fluoroscopy and under interrogation, her Arsh device is nonfunctional. Plan was replacement with a [employer] pacemaker generator. A fluoroscopy was performed to the entire system with appropriate right atrial and right ventricular lead and right-sided device placement. A 3.5 cm incision was made following local analgesia using 2% lidocaine solution. The device was then exteriorized with care. The existing generator was removed from the pocket. This is an HA/Arsh model ICD 1102, serial #[id number], originally implanted with 04/01/2010. The existing leads are as follows, an ELAFIX lead, serial #[id number], that was in the right atrium, PSA values are within normal limits with a threshold of 0.4 volts, 0.5 milliseconds and 1.8 millivolts, impedance on the lead was 468 ohms. In the right ventricular lead, the patient has an HA passive lead, serial #[id number], again this is an HA lead, parameters on this lead were within normal limits, that is threshold of 1.1 volt at 0.5 milliseconds at 4.8 millivolts with an impedance of 372 ohms. The patient's new device is a [employer] Assurity MRI device, model #OU1373, serial number is [id number], device was programmed [id number]. The patient's underlying rate was 110 beats per minute. The lead system and device were then coiled and placed in the pocket. A capsulectomy was performed to decrease risk of infection. The patient was given vancomycin preoperatively. The patient tolerated the procedure well, was taken out of the room in satisfactory condition. PLAN: The patient should undergo 12-lead EKG postoperatively in terms of coronary artery disease management as per Dr. Fong. The patient is to go to the ICU where she will be seen by the intensive care doctor as well as her primary, Dr. Horn. Thank you for letting me participate in the care of your patient. Please do not hesitate to call if you have any questions in regards to her care. Melecio Layton MD cc: Dr. Jose Robles of the Cardiology Department. Dr. Horn
[2017-05-01 05:41] LABS: HEMOGLOBIN 11.9 g/dL (12.0-16.0); MEAN CELL VOLUME 90.2 fl (81.0-99.0); MEAN CORPUSCULAR HEMOGLOBIN 29.3 pg (27.0-31.0); MEAN CORPUSCULAR HGB CONC 32.5 g/dL (33.0-37.0); RBC 4.07 Mil/uL (3.80-5.20); WHITE BLOOD COUNT 6.9 K/uL (4.8-10.8)
[2017-05-01 05:54] LABS: BLOOD UREA NITROGEN 19 mg/dl (7-17); CALCIUM 8.9 mg/dL (8.4-10.2); GFR AFRICAN-AMERICAN > 60; GFR NON-AFRICAN AMERICAN 59
[2017-05-01 07:51] LABS: ABG ALLEN TEST YES; ARTERIAL BLOOD GAS HCO3 23.6 mmol/L (21-28); ARTERIAL BLOOD GAS HEMOGLOBIN 12.1 g/dL (11.7-17.4); ARTERIAL BLOOD GAS O2 CAPACITY 16.6 mL/dL (16-24); ARTERIAL BLOOD GAS O2 CONTENT 16.4 ML/dL (15-23); ARTERIAL BLOOD GAS O2 SAT 98.7 % (95-98); ARTERIAL BLOOD GAS PCO2 45 mm/Hg (35-45); ARTERIAL BLOOD GAS PH 7.34 (7.35-7.45); ARTERIAL BLOOD GAS PO2 97 mm/Hg (80-100); ARTERIAL BLOOD GAS TCO2 25.7 mmol/L (22-28)
--- NOTE | 2017-05-01 09:10 | CARD ---
APPROVED REPORT EKG Measurement Heart [id number] <Conclusion> Atrial-sensed ventricular-paced rhythm Abnormal ECG
--- NOTE | 2017-05-01 09:14 | CARD ---
APPROVED REPORT EKG Measurement Heart [id number] <Conclusion> Complete heart block with ventricular rate of 33 beats per minute Abnormal ECG
[2017-05-01] MEDS: Enoxaparin 30 mg Syringe SC SCH (11:19)
--- NOTE | 2017-05-01 11:44 | RAD ---
HISTORY: SOB/Crackles COMPARISON: Chest radiograph dated 04/30/2017. FINDINGS: LUNGS: Stable chronic prominence of the bilateral interstitial markings with superimposed pulmonary vascular congestion not excluded. PLEURA: Costophrenic angles poorly evaluated due to overlying soft tissue. No pneumothorax apparent. CARDIOVASCULAR: Right subclavian access to lead pacemaker redemonstrated. Atherosclerotic aortic calcifications. Cardiomediastinal silhouette unchanged. OSSEOUS STRUCTURES: No significant abnormalities. VISUALIZED UPPER ABDOMEN: Normal. OTHER FINDINGS: None. IMPRESSION: Limited examination. Stable chronic prominence of the bilateral interstitial markings with superimposed pulmonary vascular congestion not excluded. Poor evaluation of the costophrenic angles.
--- NOTE | 2017-05-01 12:53 | CP.PCM.HP ---
History of Present Illness - History of Present Illness History of Present Illness: This is an 86 y/o female admitted for on and off chest pain SOB and gen weakness for the past few days. She was previously advised to have a pacemaker battery change. At [facility] she was noted to be in complete heart block hence an emergency procedure was performed. Past Patient History - Past Medical History & Family History Past Medical History?: Yes - Past Social History Smoking Status: Never Smoked - CARDIAC Hx Cardiac Disorders: Yes Hx Angina: No Hx Pacemaker: Yes - PULMONARY Hx Respiratory Disorders: No - NEUROLOGICAL Hx Neurological Disorder: Yes Other/Comment: CVA - HEENT Hx HEENT Problems: No - RENAL Hx Chronic Kidney Disease: No - ENDOCRINE/METABOLIC Hx Endocrine Disorders: No - HEMATOLOGICAL/ONCOLOGICAL Hx Blood Disorders: No - INTEGUMENTARY Hx Dermatological Problems: No - MUSCULOSKELETAL/RHEUMATOLOGICAL Hx Musculoskeletal Disorders: Yes - GASTROINTESTINAL Hx Gastrointestinal Disorders: No - GENITOURINARY/GYNECOLOGICAL Hx Genitourinary Disorders: Yes - PSYCHIATRIC Hx Emotional Abuse: No Hx Physical Abuse: No - SURGICAL HISTORY Hx Coronary Artery Bypass Graft: No - ANESTHESIA Hx Anesthesia: No Meds Allergies/Adverse Reactions: Allergies Allergy/AdvReac Type Severity Reaction Status Date / Time Penicillins Allergy RASH Verified 10/25/16 11:48 Results - Vital Signs Recent Vital Signs: Last Vital Signs Temp 98.7 F 05/01/17 12:00 Pulse 85 05/01/17 12:00 Resp 25 H 05/01/17 12:00 BP 122/79 05/01/17 11:18 Pulse Ox 97 05/01/17 12:00 - Labs Result Diagrams: 05/01/17 04:30 05/01/17 04:30 Labs: Laboratory Results - last 24 hr 04/30/17 04/30/17 04/30/17 15:29 16:49 21:36 WBC RBC Hgb Hct MCV MCH MCHC RDW Plt Count pCO2 pO2 HCO3 ABG pH ABG Total CO2 ABG O2 Saturation ABG O2 Content ABG Base Excess ABG Hemoglobin ABG Carboxyhemoglobin POC ABG HHb (Measured) ABG Methemoglobin ABG O2 Capacity Leonides Test A-a O2 Difference Hgb O2 Saturation FiO2 Sodium Potassium Chloride Carbon Dioxide Anion Gap BUN Creatinine Est GFR ( Amer) Est GFR (Non-Af Amer) POC Glucose (mg/dL) 92 96 Random Glucose Calcium Troponin I 1.4700 H* 05/01/17 05/01/17 05/01/17 04:30 04:30 05:47 WBC 6.9 RBC 4.07 Hgb 11.9 L Hct 36.7 MCV 90.2 MCH 29.3 MCHC 32.5 L RDW 14.0 Plt Count 164 pCO2 pO2 HCO3 ABG pH ABG Total CO2 ABG O2 Saturation ABG O2 Content ABG Base Excess ABG Hemoglobin ABG Carboxyhemoglobin POC ABG HHb (Measured) ABG Methemoglobin ABG O2 Capacity Leonides Test A-a O2 Difference Hgb O2 Saturation FiO2 Sodium 145 Potassium 4.0 Chloride 111 H Carbon Dioxide 23 Anion Gap 15 BUN 19 H Creatinine 0.9 Est GFR ( Amer) > 60 Est GFR (Non-Af Amer) 59 POC Glucose (mg/dL) 84 Random Glucose 96 Calcium 8.9 Troponin I 05/01/17 05/01/17 07:30 09:35 WBC RBC Hgb Hct MCV MCH MCHC RDW Plt Count pCO2 45 pO2 97 HCO3 23.6 ABG pH 7.34 L ABG Total CO2 25.7 ABG O2 Saturation 98.7 H ABG O2 Content 16.4 ABG Base Excess -1.7 ABG Hemoglobin 12.1 ABG Carboxyhemoglobin 1.7 H POC ABG HHb (Measured) 1.3 ABG Methemoglobin 1.4 ABG O2 Capacity 16.6 Leonides Test Yes A-a O2 Difference 132.0 Hgb O2 Saturation 95.6 FiO2 40.0 Sodium Potassium Chloride Carbon Dioxide Anion Gap BUN Creatinine Est GFR ( Amer) Est GFR (Non-Af Amer) POC Glucose (mg/dL) Random Glucose Calcium Troponin I 0.4330 H*
--- NOTE | 2017-05-01 16:54 | CP.CCUPN ---
CCU Subjective - Physician Review Subjective (Free Text): 04/30/17 19:18 The patient was Seen/interviewed and examined by me at the bedside during ICU round, Medical records reviewed and Management issues were discussed and formulated with the house staff. Events reviewed Admitted to the ICU following PPM battery change, she initially presented to the Emergency department for pressure like chest pain and spreading across her chest. Found to have complete heart block and NSTMI Clinically and hemodynamically stable No Vasopressors Awake, comfortable, NAD Pt AAO x3. Alert, follows commands, Denies any chest pain, SOB or Palpitations Afebrile, paced rhythm on the monitor No chest pain, Trop level trending down AM CXR with mild pulmonary vascular congestions, IV Lasix given, and josue she feels better CCU Objective - Vital Signs / Intake & Output Vital Signs (Last 4 hours): Vital Signs Temp Pulse Resp BP Pulse Ox 05/01/17 16:00 98.7 F 96 H 20 143/93 H 91 L Intake and Output (Last 8hrs): Intake & Output 05/01/17 05/01/17 05/01/17 06:59 14:59 22:59 Intake Total 330 Balance 330 Intake: IV 330 Other: # Voids Urine, Voided 1 - Physical Exam Head: Positive for: Atraumatic, Normocephalic Pupils: Positive for: PERRL. Negative for: Sluggish, Non-Reactive Extroacular Muscles: Positive for: EOMI Conjunctiva: Positive for: Normal. Negative for: Injected, Icteric Mouth: Positive for: Moist Mucous Membranes Nose (Internal): Positive for: Normal Inspection Neck: Positive for: Normal Range of Motion, Trachea Midline. Negative for: Meningeal Signs, MIDLINE TENDERNESS, Paraspinal Tenderness, JVD, Lymphadenopathy , Bruit, Other Respiratory/Chest: Positive for: Clear to Auscultation, Good Air Exchange. Negative for: Respiratory Distress, Accessory Muscle Use, Wheezes, Rales, Retracting, Rhonchi, Tachypneic Cardiovascular: Positive for: Regular Rate and Rhythm, Normal S1, S2, Peripheal Pulses Present. Negative for: Tachycardic, Bradycardic Abdomen: Positive for: Normal Bowel Sounds. Negative for: Tenderness, Distention Upper Extremity: Positive for: Normal Inspection, NORMAL PULSES, Capillary Refill < 2s, Norm 2-Pt Discrimination. Negative for: Cyanosis, Edema Lower Extremity: Positive for: NORMAL PULSES, Normal ROM, Erythema (Bilateral back of legs ). Negative for: Edema, CALF TENDERNESS, Cyanosis, Tenderness, Swelling Neurological: Positive for: GCS=15, CN II-XII Intact, Speech Normal, Motor Func Grossly Intact, Normal Sensory Function Psychiatric: Positive for: Alert, Oriented x 3 - Medications Active Medications: Active Medications Generic Name Dose Route Start Last Admin Trade Name Freq PRN Reason Stop Dose Admin Carvedilol 12.5 mg 04/30/17 21:00 05/01/17 11:18 Coreg PO 12.5 mg Q12 JEREMI Administration Enoxaparin Sodium 30 mg 04/30/17 15:00 05/01/17 11:19 Lovenox SC 30 mg DAILY JEREMI Administration Protocol - Patient Studies Lab Studies: Lab Studies 05/01/17 05/01/17 05/01/17 Range/Units 09:35 07:30 05:47 WBC (4.8-10.8) K/uL RBC (3.80-5.20) Mil/uL Hgb (12.0-16.0) g/dL Hct (34.0-47.0) % MCV (81.0-99.0) fl MCH (27.0-31.0) pg MCHC (33.0-37.0) g/dL RDW (11.5-14.5) % Plt Count (130-400) K/uL pCO2 45 (35-45) mm/Hg pO2 97 (80-100) mm/Hg HCO3 23.6 (21-28) mmol/L ABG pH 7.34 L (7.35-7.45) ABG Total CO2 25.7 (22-28) mmol/L ABG O2 Saturation 98.7 H (95-98) % ABG O2 Content 16.4 (15-23) ML/dL ABG Base Excess -1.7 (-2.0-3.0) mmol/L ABG Hemoglobin 12.1 (11.7-17.4) g/dL ABG Carboxyhemoglobin 1.7 H (0.5-1.5) % POC ABG HHb (Measured) 1.3 (0.0-5.0) % ABG Methemoglobin 1.4 (0.0-3.0) % ABG O2 Capacity 16.6 (16-24) mL/dL Leonides Test Yes A-a O2 Difference 132.0 mm/Hg Hgb O2 Saturation 95.6 (95.0-98.0) % FiO2 40.0 % Sodium (132-148) mmol/l Potassium (3.6-5.0) MMOL/L Chloride (98-107) mmol/L Carbon Dioxide (22-30) mmol/L Anion Gap (10-20) BUN (7-17) mg/dl Creatinine (0.7-1.2) mg/dl Est GFR ( Amer) Est GFR (Non-Af Amer) POC Glucose (mg/dL) 84 (65-110) mg/dL Random Glucose (65-105) mg/dL Calcium (8.4-10.2) mg/dL Troponin I 0.4330 H* (0.00-0.120) ng/mL 05/01/17 05/01/17 04/30/17 Range/Units 04:30 04:30 21:36 WBC 6.9 (4.8-10.8) K/uL RBC 4.07 (3.80-5.20) Mil/uL Hgb 11.9 L (12.0-16.0) g/dL Hct 36.7 (34.0-47.0) % MCV 90.2 (81.0-99.0) fl MCH 29.3 (27.0-31.0) pg MCHC 32.5 L (33.0-37.0) g/dL RDW 14.0 (11.5-14.5) % Plt Count 164 (130-400) K/uL pCO2 (35-45) mm/Hg pO2 (80-100) mm/Hg HCO3 (21-28) mmol/L ABG pH (7.35-7.45) ABG Total CO2 (22-28) mmol/L ABG O2 Saturation (95-98) % ABG O2 Content (15-23) ML/dL ABG Base Excess (-2.0-3.0) mmol/L ABG Hemoglobin (11.7-17.4) g/dL ABG Carboxyhemoglobin (0.5-1.5) % POC ABG HHb (Measured) (0.0-5.0) % ABG Methemoglobin (0.0-3.0) % ABG O2 Capacity (16-24) mL/dL Leonides Test A-a O2 Difference mm/Hg Hgb O2 Saturation (95.0-98.0) % FiO2 % Sodium 145 (132-148) mmol/l Potassium 4.0 (3.6-5.0) MMOL/L Chloride 111 H (98-107) mmol/L Carbon Dioxide 23 (22-30) mmol/L Anion Gap 15 (10-20) BUN 19 H (7-17) mg/dl Creatinine 0.9 (0.7-1.2) mg/dl Est GFR ( Amer) > 60 Est GFR (Non-Af Amer) 59 POC Glucose (mg/dL) 96 (65-110) mg/dL Random Glucose 96 (65-105) mg/dL Calcium 8.9 (8.4-10.2) mg/dL Troponin I (0.00-0.120) ng/mL 04/30/17 Range/Units 16:49 WBC (4.8-10.8) K/uL RBC (3.80-5.20) Mil/uL Hgb (12.0-16.0) g/dL Hct (34.0-47.0) % MCV (81.0-99.0) fl MCH (27.0-31.0) pg MCHC (33.0-37.0) g/dL RDW (11.5-14.5) % Plt Count (130-400) K/uL pCO2 (35-45) mm/Hg pO2 (80-100) mm/Hg HCO3 (21-28) mmol/L ABG pH (7.35-7.45) ABG Total CO2 (22-28) mmol/L ABG O2 Saturation (95-98) % ABG O2 Content (15-23) ML/dL ABG Base Excess (-2.0-3.0) mmol/L ABG Hemoglobin (11.7-17.4) g/dL ABG Carboxyhemoglobin (0.5-1.5) % POC ABG HHb (Measured) (0.0-5.0) % ABG Methemoglobin (0.0-3.0) % ABG O2 Capacity (16-24) mL/dL Leonides Test A-a O2 Difference mm/Hg Hgb O2 Saturation (95.0-98.0) % FiO2 % Sodium (132-148) mmol/l Potassium (3.6-5.0) MMOL/L Chloride (98-107) mmol/L Carbon Dioxide (22-30) mmol/L Anion Gap (10-20) BUN (7-17) mg/dl Creatinine (0.7-1.2) mg/dl Est GFR ( Amer) Est GFR (Non-Af Amer) POC Glucose (mg/dL) 92 (65-110) mg/dL Random Glucose (65-105) mg/dL Calcium (8.4-10.2) mg/dL Troponin I (0.00-0.120) ng/mL Laboratory Results - last 24 hr 04/30/17 04/30/17 05/01/17 16:49 21:36 04:30 WBC 6.9 RBC 4.07 Hgb 11.9 L Hct 36.7 MCV 90.2 MCH 29.3 MCHC 32.5 L RDW 14.0 Plt Count 164 pCO2 pO2 HCO3 ABG pH ABG Total CO2 ABG O2 Saturation ABG O2 Content ABG Base Excess ABG Hemoglobin ABG Carboxyhemoglobin POC ABG HHb (Measured) ABG Methemoglobin ABG O2 Capacity Leonides Test A-a O2 Difference Hgb O2 Saturation FiO2 Sodium Potassium Chloride Carbon Dioxide Anion Gap BUN Creatinine Est GFR ( Amer) Est GFR (Non-Af Amer) POC Glucose (mg/dL) 92 96 Random Glucose Calcium Troponin I 05/01/17 05/01/17 05/01/17 04:30 05:47 07:30 WBC RBC Hgb Hct MCV MCH MCHC RDW Plt Count pCO2 45 pO2 97 HCO3 23.6 ABG pH 7.34 L ABG Total CO2 25.7 ABG O2 Saturation 98.7 H ABG O2 Content 16.4 ABG Base Excess -1.7 ABG Hemoglobin 12.1 ABG Carboxyhemoglobin 1.7 H POC ABG HHb (Measured) 1.3 ABG Methemoglobin 1.4 ABG O2 Capacity 16.6 Leonides Test Yes A-a O2 Difference 132.0 Hgb O2 Saturation 95.6 FiO2 40.0 Sodium 145 Potassium 4.0 Chloride 111 H Carbon Dioxide 23 Anion Gap 15 BUN 19 H Creatinine 0.9 Est GFR ( Amer) > 60 Est GFR (Non-Af Amer) 59 POC Glucose (mg/dL) 84 Random Glucose 96 Calcium 8.9 Troponin I 05/01/17 09:35 WBC RBC Hgb Hct MCV MCH MCHC RDW Plt Count pCO2 pO2 HCO3 ABG pH ABG Total CO2 ABG O2 Saturation ABG O2 Content ABG Base Excess ABG Hemoglobin ABG Carboxyhemoglobin POC ABG HHb (Measured) ABG Methemoglobin ABG O2 Capacity Leonides Test A-a O2 Difference Hgb O2 Saturation FiO2 Sodium Potassium Chloride Carbon Dioxide Anion Gap BUN Creatinine Est GFR ( Amer) Est GFR (Non-Af Amer) POC Glucose (mg/dL) Random Glucose Calcium Troponin I 0.4330 H* EKG/Cardiology Studies: Cardiology / EKG Studies 05/01/17 EKG [ELECTROCARDIOGRAM] Stat Comment: Mode Of Transportation: PORTABLE Reason For Exam: SOB/congestion Does Patient Have a Pacemaker?: Yes Fingerstick Blood Sugar Results: 84 Critical Care Progress Note - Nutrition Nutrition: Nutrition Category Date Time Status Dysphagia/Modified Consistency Diet [DIET] Diets 05/01/17 Dinner Active Assessment/Plan (1) Chest pain Current Visit: Yes Status: Acute (2) Heart block AV third degree Current Visit: Yes Status: Acute (3) NSTEMI (non-ST elevated myocardial infarction) Current Visit: Yes Status: Acute (4) Dizziness Current Visit: No Status: Acute (5) Essential hypertension Current Visit: Yes Status: Acute - Assessment and Plan (Free Text) Assessment: NSTEMI, PPM faiure S/P battery change No chest pain, Trop level trending down AM CXR with mild pulmonary vascular congestions, IV Lasix given, and josue she feels better Monitor LABS/LYTES/CBC/serial Trop Monitor Respiratory status PRN Xanax PRN Lasix Monitor urine output Restart outpatient meds including B Leda, ASA, Statins and Eye drops BD nebs Q 6H PRN PRN Ondansetron Maintain aspiration precautions GI/DVT PPX with SCDs, SQH, LMWH
--- NOTE | 2017-05-01 20:35 | CP.PCM.PN ---
Subjective - Date & Time of Evaluation Date of Evaluation: 05/01/17 Time of Evaluation: 11:35 - Subjective Subjective: Patient seen and examined at bedside with attending-Dr. Horn. Patient awake, alert, reports some mild shortness of breath while on supplemental O2 via nasal cannula. Denies chest pain, dizziness, or palpitations. Objective - Vital Signs/Intake and Output Vital Signs (last 24 hours): Temp Pulse Resp BP Pulse Ox 98.7 F 82 21 147/84 91 L 05/01/17 16:00 05/01/17 18:00 05/01/17 18:00 05/01/17 18:00 05/01/17 18:00 Intake and Output: 05/01/17 05/02/17 18:59 06:59 Intake Total 280 Balance 280 - Medications Medications: Current Medications Aspirin (Ecotrin) 81 mg PO DAILY [facility] Atorvastatin Calcium (Lipitor) 40 mg PO DAILY [facility] Carvedilol (Coreg) 12.5 mg PO Q12 [facility] Last Admin: 05/01/17 11:18 Dose: 12.5 mg Enoxaparin Sodium (Lovenox) 30 mg SC DAILY [facility] PRN Reason: Protocol Last Admin: 05/01/17 11:19 Dose: 30 mg Latanoprost (Xalatan Opht) 1 drop OU HS [facility] - Labs Labs: 05/01/17 04:30 05/01/17 04:30 PT 12.5 Seconds (9.8-13.1) 04/30/17 09:28 INR 1.1 (0.9-1.2) 04/30/17 09:28 - Constitutional Appears: Chronically Ill - Head Exam Head Exam: ATRAUMATIC, NORMOCEPHALIC - Eye Exam Eye Exam: EOMI - ENT Exam ENT Exam: Mucous Membranes Moist - Neck Exam Neck Exam: Full ROM - Respiratory Exam Respiratory Exam: Decreased Breath Sounds, Rhonchi (mild diffuse) - Cardiovascular Exam Cardiovascular Exam: REGULAR RHYTHM, +S1, +S2 - GI/Abdominal Exam GI & Abdominal Exam: Rigid, Tenderness (mild to palpation in hypogastric area). absent: Guarding - Extremities Exam Extremities Exam: Full ROM, Pedal Edema (pitting +1) - Neurological Exam Neurological Exam: Alert, Awake, CN II-XII Intact, Oriented x3 - Psychiatric Exam Psychiatric exam: Normal Affect, Normal Mood - Skin Skin Exam: Dry, Warm Assessment and Plan - Assessment and Plan (Free Text) Assessment: 86 yr old F with HTN admitted for complete heart block and NSTEMI, stable s/p pacemaker battery change. -continue management in ICU -lactulose ordered -cardiology consult appreciated-will follow recommendations: monitor troponin and start beta andre
[2017-05-02 05:42] LABS: HEMOGLOBIN 12.9 g/dL (12.0-16.0); MEAN CELL VOLUME 89.3 fl (81.0-99.0); MEAN CORPUSCULAR HEMOGLOBIN 28.8 pg (27.0-31.0); MEAN CORPUSCULAR HGB CONC 32.3 g/dL (33.0-37.0); RBC 4.46 Mil/uL (3.80-5.20); RED CELL DISTRIBUTION WIDTH 14.2 % (11.5-14.5)
[2017-05-02 05:50] LABS: AST/SGOT 44 U/L (14-36); GFR AFRICAN-AMERICAN > 60; GFR NON-AFRICAN AMERICAN 52
[2017-05-02 06:04] LABS: ALB/GLOB RATIO 1.2 (1.0-2.1); ALBUMIN 3.4 g/dL (3.5-5.0); ALT/SGPT 71 U/L (9-52); BLOOD UREA NITROGEN 22 mg/dl (7-17); CALCIUM 9.4 mg/dL (8.4-10.2)
[2017-05-02] MEDS: Enoxaparin 30 mg Syringe SC SCH (08:15)
[2017-05-02 11:40] VITALS: BMI 25.7
--- NOTE | 2017-05-02 13:11 | RAD ---
PROCEDURE: HISTORY: As above COMPARISON: None TECHNIQUE: Total fluoroscopic time utilized during the procedure: 3.1 seconds. Total dose 0.44 mGy cm squared FINDINGS: Submitted images from the current procedure: 1 Please refer to the physician's notes performing the procedure. IMPRESSION: Less than 1 hour fluoroscopic time utilized during performance of the procedure
--- NOTE | 2017-05-02 14:45 | CP.CCUPN ---
CCU Subjective - Physician Review Subjective (Free Text): Awake and alert, more oriented today to place and time, no distress, mostly paced rhythm noted. No new ectopy no other malignant arrhythmias. Afebrile, denies any chest discomfort or SOB at rest. Other vitals and I/O's reviewed. ROS: No other pertinent negs or positives on 10+ system review. PMSFH: All other Nursing and physician documentation reviewed to date; no new pertinent info noted relevant to current medical problems. CXR from 05/01 study reviewed: (my interp)- bibasilar haziness suggestive of pulm vasc congestion. IMPRESSION / MAJOR PROBLEMS NOW: 1. s/p PPM battery change 2. NSTEMI 3. Acute resp insuff 2 Pulm edema PLAN: 1. ASA, BBs, LMWH, stain already ordered. 2. Stopped supplemental IVFs and on prn Lasix. 3. No Advance Directives. 4. Stable for Tele bed, see orders. CCU Objective - Vital Signs / Intake & Output Vital Signs (Last 4 hours): Vital Signs Temp Pulse Resp BP Pulse Ox 05/02/17 14:00 82 35 H 140/77 96 05/02/17 12:00 98.5 F 90 19 138/84 97 Intake and Output (Last 8hrs): Intake & Output 05/01/17 05/02/17 05/02/17 22:59 06:59 14:59 Intake Total 330 50 Balance 330 50 Intake: IV 0 0 Oral 330 50 Other: # Voids Urine, Voided 1 1 # Bowel Movements 1 1 - Physical Exam Head: Positive for: Atraumatic, Normocephalic Pupils: Positive for: PERRL. Negative for: Sluggish, Non-Reactive Extroacular Muscles: Positive for: EOMI Conjunctiva: Positive for: Normal. Negative for: Injected, Icteric Mouth: Positive for: Moist Mucous Membranes Nose (Internal): Positive for: Normal Inspection Neck: Positive for: Normal Range of Motion, Trachea Midline. Negative for: Meningeal Signs, MIDLINE TENDERNESS, Paraspinal Tenderness, JVD, Lymphadenopathy , Bruit, Other Respiratory/Chest: Positive for: Clear to Auscultation, Good Air Exchange. Negative for: Respiratory Distress, Accessory Muscle Use, Wheezes, Rales, Retracting, Rhonchi, Tachypneic Cardiovascular: Positive for: Regular Rate and Rhythm, Normal S1, S2, Peripheal Pulses Present. Negative for: Tachycardic, Bradycardic Abdomen: Positive for: Normal Bowel Sounds. Negative for: Tenderness, Distention Upper Extremity: Positive for: Normal Inspection, NORMAL PULSES, Capillary Refill < 2s, Norm 2-Pt Discrimination. Negative for: Cyanosis, Edema Lower Extremity: Positive for: NORMAL PULSES, Normal ROM, Erythema (Bilateral back of legs ). Negative for: Edema, CALF TENDERNESS, Cyanosis, Tenderness, Swelling Neurological: Positive for: GCS=15, CN II-XII Intact, Speech Normal, Motor Func Grossly Intact, Normal Sensory Function Psychiatric: Positive for: Alert, Oriented x 3 - Medications Active Medications: Active Medications Generic Name Dose Route Start Last Admin Trade Name Freq PRN Reason Stop Dose Admin Aspirin 81 mg 05/02/17 09:00 05/02/17 08:15 Ecotrin PO 81 mg DAILY JEREMI Administration Atorvastatin Calcium 40 mg 05/02/17 09:00 05/02/17 08:15 Lipitor PO 40 mg DAILY JEREMI Administration Carvedilol 12.5 mg 04/30/17 21:00 05/02/17 08:15 Coreg PO 12.5 mg Q12 JEREMI Administration Enoxaparin Sodium 30 mg 04/30/17 15:00 05/02/17 08:15 Lovenox SC 30 mg DAILY JEREMI Administration Protocol Latanoprost 1 drop 05/01/17 22:00 Xalatan Opht OU HS JEREMI - Patient Studies Lab Studies: Microbiology Studies 04/30/17 19:06 MRSA Culture (Admit) - Final Nose MRSA NOT DETECTED Lab Studies 05/02/17 05/02/17 05/02/17 Range/Units 12:09 05:22 04:50 WBC (4.8-10.8) K/uL RBC (3.80-5.20) Mil/uL Hgb (12.0-16.0) g/dL Hct (34.0-47.0) % MCV (81.0-99.0) fl MCH (27.0-31.0) pg MCHC (33.0-37.0) g/dL RDW (11.5-14.5) % Plt Count (130-400) K/uL Sodium 144 (132-148) mmol/l Potassium 4.0 (3.6-5.0) MMOL/L Chloride 109 H (98-107) mmol/L Carbon Dioxide 27 (22-30) mmol/L Anion Gap 12 (10-20) BUN 22 H (7-17) mg/dl Creatinine 1.0 (0.7-1.2) mg/dl Est GFR ( Amer) > 60 Est GFR (Non-Af Amer) 52 POC Glucose (mg/dL) 121 H 98 (65-110) mg/dL Random Glucose 107 H (65-105) mg/dL Calcium 9.4 (8.4-10.2) mg/dL Total Bilirubin 1.8 H (0.2-1.3) mg/dl AST 44 H (14-36) U/L ALT 71 H D (9-52) U/L Alkaline Phosphatase 56 (38-126) U/L Total Protein 6.4 (6.3-8.2) G/DL Albumin 3.4 L (3.5-5.0) g/dL Globulin 2.9 (2.2-3.9) gm/dL Albumin/Globulin Ratio 1.2 (1.0-2.1) 05/02/17 05/01/17 05/01/17 Range/Units 04:50 21:47 17:12 WBC 8.0 (4.8-10.8) K/uL RBC 4.46 (3.80-5.20) Mil/uL Hgb 12.9 (12.0-16.0) g/dL Hct 39.8 (34.0-47.0) % MCV 89.3 (81.0-99.0) fl MCH 28.8 (27.0-31.0) pg MCHC 32.3 L (33.0-37.0) g/dL RDW 14.2 (11.5-14.5) % Plt Count 203 (130-400) K/uL Sodium (132-148) mmol/l Potassium (3.6-5.0) MMOL/L Chloride (98-107) mmol/L Carbon Dioxide (22-30) mmol/L Anion Gap (10-20) BUN (7-17) mg/dl Creatinine (0.7-1.2) mg/dl Est GFR ( Amer) Est GFR (Non-Af Amer) POC Glucose (mg/dL) 153 H 101 (65-110) mg/dL Random Glucose (65-105) mg/dL Calcium (8.4-10.2) mg/dL Total Bilirubin (0.2-1.3) mg/dl AST (14-36) U/L ALT (9-52) U/L Alkaline Phosphatase (38-126) U/L Total Protein (6.3-8.2) G/DL Albumin (3.5-5.0) g/dL Globulin (2.2-3.9) gm/dL Albumin/Globulin Ratio (1.0-2.1) Laboratory Results - last 24 hr 05/01/17 05/01/17 05/02/17 17:12 21:47 04:50 WBC 8.0 RBC 4.46 Hgb 12.9 Hct 39.8 MCV 89.3 MCH 28.8 MCHC 32.3 L RDW 14.2 Plt Count 203 Sodium Potassium Chloride Carbon Dioxide Anion Gap BUN Creatinine Est GFR ( Amer) Est GFR (Non-Af Amer) POC Glucose (mg/dL) 101 153 H Random Glucose Calcium Total Bilirubin AST ALT Alkaline Phosphatase Total Protein Albumin Globulin Albumin/Globulin Ratio 05/02/17 05/02/17 05/02/17 04:50 05:22 12:09 WBC RBC Hgb Hct MCV MCH MCHC RDW Plt Count Sodium 144 Potassium 4.0 Chloride 109 H Carbon Dioxide 27 Anion Gap 12 BUN 22 H Creatinine 1.0 Est GFR ( Amer) > 60 Est GFR (Non-Af Amer) 52 POC Glucose (mg/dL) 98 121 H Random Glucose 107 H Calcium 9.4 Total Bilirubin 1.8 H AST 44 H ALT 71 H D Alkaline Phosphatase 56 Total Protein 6.4 Albumin 3.4 L Globulin 2.9 Albumin/Globulin Ratio 1.2 Fingerstick Blood Sugar Results: 121 Review of Systems - Review of Systems All systems: reviewed and no additional remarkable complaints except (as above) Critical Care Progress Note - Nutrition Nutrition: Nutrition Category Date Time Status Dysphagia/Modified Consistency Diet [DIET] Diets 05/01/17 Dinner Active
[2017-05-02] MEDS: Latanoprost 0.005% Opht SOUTION OU SCH (21:40)
--- NOTE | 2017-05-03 00:02 | CP.PCM.PN ---
Subjective - Date & Time of Evaluation Date of Evaluation: 05/02/17 Time of Evaluation: 10:05 - Subjective Subjective: Patient seen and examined at bedside with attending-Dr. Horn. Sitting in chair , reports she still feels SOB and overall malaise. Otherwise tolerating PO diet. Objective - Vital Signs/Intake and Output Vital Signs (last 24 hours): Temp Pulse Resp BP Pulse Ox 99.3 F 87 30 H 150/99 H 89 L 05/02/17 20:00 05/02/17 22:27 05/02/17 20:00 05/02/17 22:27 05/02/17 20:00 Intake and Output: 05/02/17 05/03/17 18:59 06:59 Intake Total 400 120 Balance 400 120 - Medications Medications: Current Medications Aspirin (Ecotrin) 81 mg PO DAILY [facility] Last Admin: 05/02/17 08:15 Dose: 81 mg Atorvastatin Calcium (Lipitor) 40 mg PO DAILY [facility] Last Admin: 05/02/17 08:15 Dose: 40 mg Carvedilol (Coreg) 12.5 mg PO Q12 [facility] Last Admin: 05/02/17 22:27 Dose: 12.5 mg Enoxaparin Sodium (Lovenox) 30 mg SC DAILY [facility] PRN Reason: Protocol Last Admin: 05/02/17 08:15 Dose: 30 mg Latanoprost (Xalatan Opht) 1 drop OU HS [facility] Last Admin: 05/02/17 21:40 Dose: 1 drop - Labs Labs: 05/02/17 04:50 05/02/17 04:50 PT 12.5 Seconds (9.8-13.1) 04/30/17 09:28 INR 1.1 (0.9-1.2) 04/30/17 09:28 - Constitutional Appears: Chronically Ill - Head Exam Head Exam: ATRAUMATIC, NORMOCEPHALIC - Eye Exam Eye Exam: EOMI - ENT Exam ENT Exam: Mucous Membranes Moist - Neck Exam Neck Exam: Full ROM - Respiratory Exam Respiratory Exam: Decreased Breath Sounds Additional comments: comfortable on 2L supplemental O2 via nasal cannula - Cardiovascular Exam Cardiovascular Exam: REGULAR RHYTHM, +S1, +S2 - GI/Abdominal Exam GI & Abdominal Exam: Soft (obese), Normal Bowel Sounds. absent: Tenderness - Extremities Exam Extremities Exam: Full ROM - Neurological Exam Neurological Exam: Alert, Awake, CN II-XII Intact - Psychiatric Exam Psychiatric exam: Normal Affect, Normal Mood - Skin Skin Exam: Dry, Warm Assessment and Plan - Assessment and Plan (Free Text) Assessment: 86 yr old F with HTN admitted for complete heart block and NSTEMI, stable s/p pacemaker battery change. -continue management in ICU -cardiology consult appreciated-will follow recommendations: beta andre, statin, asa -PT/OT -lovenox 30mcg SC QD for DVT prophylaxis
[2017-05-03] MEDS: Enoxaparin 30 mg Syringe SC SCH (08:54)
--- NOTE | 2017-05-03 09:06 | CP.PCM.PN ---
Subjective - Date & Time of Evaluation Date of Evaluation: 05/03/17 Time of Evaluation: 09:55 - Subjective Subjective: Patient seen and examined at bedside with attending- Dr. Horn. Awaker, alert, sitting in chair, repeatedly asking questions about the course of her hospital stay and treatment, reports she feels slightly better. Tolerating PO diet. Objective - Vital Signs/Intake and Output Vital Signs (last 24 hours): Temp Pulse Resp BP Pulse Ox 97.7 F 83 25 H 135/80 98 05/03/17 05:00 05/03/17 08:54 05/03/17 05:00 05/03/17 08:54 05/03/17 05:00 Intake and Output: 05/03/17 05/03/17 06:59 18:59 Intake Total 260 Balance 260 - Medications Medications: Current Medications Aspirin (Ecotrin) 81 mg PO DAILY [facility] Last Admin: 05/03/17 08:53 Dose: 81 mg Atorvastatin Calcium (Lipitor) 40 mg PO DAILY [facility] Last Admin: 05/03/17 08:53 Dose: 40 mg Carvedilol (Coreg) 12.5 mg PO Q12 [facility] Last Admin: 05/03/17 08:54 Dose: 12.5 mg Enoxaparin Sodium (Lovenox) 30 mg SC DAILY [facility] PRN Reason: Protocol Last Admin: 05/03/17 08:54 Dose: 30 mg Latanoprost (Xalatan Opht) 1 drop OU HS [facility] Last Admin: 05/02/17 21:40 Dose: 1 drop - Labs Labs: 05/02/17 04:50 05/02/17 04:50 PT 12.5 Seconds (9.8-13.1) 04/30/17 09:28 INR 1.1 (0.9-1.2) 04/30/17 09:28 - Constitutional Appears: No Acute Distress - Head Exam Head Exam: ATRAUMATIC, NORMOCEPHALIC - Eye Exam Eye Exam: EOMI - ENT Exam ENT Exam: Mucous Membranes Moist - Neck Exam Neck Exam: Full ROM - Respiratory Exam Respiratory Exam: NORMAL BREATHING PATTERN - Cardiovascular Exam Cardiovascular Exam: REGULAR RHYTHM, +S1, +S2 - GI/Abdominal Exam GI & Abdominal Exam: Soft (obese), Normal Bowel Sounds - Extremities Exam Extremities Exam: Full ROM. absent: Pedal Edema - Neurological Exam Neurological Exam: Alert, Awake, CN II-XII Intact - Psychiatric Exam Psychiatric exam: Normal Affect, Normal Mood - Skin Skin Exam: Dry, Normal Color, Warm Assessment and Plan - Assessment and Plan (Free Text) Assessment: 86 yr old F with HTN admitted for complete heart block and NSTEMI, stable s/p pacemaker battery change. -transfer to med/surg -cardiology consult appreciated-will follow recommendations: beta andre, statin, asa -PT/OT -lovenox 30mcg SC QD for DVT prophylaxis
[2017-05-03] MEDS: Latanoprost 0.005% Opht SOUTION OU SCH (21:27)
[2017-05-04] MEDS: Enoxaparin 30 mg Syringe SC SCH (09:49)
--- NOTE | 2017-05-04 13:27 | CP.PCM.DIS ---
Provider - Provider Date of Admission: 04/30/17 08:48 Attending physician: Ramsey Horn MD Primary care physician: Dr. Horn Consults: Dr. Fong-cardiology Time Spent in preparation of Discharge (in minutes): 30 Diagnosis - Discharge Diagnosis (1) Heart block AV third degree Status: Resolved Priority: Low (2) Pacemaker battery depletion Status: Resolved Priority: Low Comment: s/p pacemaker battery changed (3) Essential hypertension Status: Chronic Priority: Low (4) NSTEMI (non-ST elevated myocardial infarction) Status: Acute Priority: Low Hospital Course - Lab Results Lab Results: Micro Results 04/30/17 19:06 Nose MRSA Culture (Admit) - Final MRSA NOT DETECTED Most Recent Lab Values WBC 8.0 K/uL (4.8-10.8) 05/02/17 04:50 RBC 4.46 Mil/uL (3.80-5.20) 05/02/17 04:50 Hgb 12.9 g/dL (12.0-16.0) 05/02/17 04:50 Hct 39.8 % (34.0-47.0) 05/02/17 04:50 MCV 89.3 fl (81.0-99.0) 05/02/17 04:50 MCH 28.8 pg (27.0-31.0) 05/02/17 04:50 MCHC 32.3 g/dL (33.0-37.0) L 05/02/17 04:50 RDW 14.2 % (11.5-14.5) 05/02/17 04:50 Plt Count 203 K/uL (130-400) 05/02/17 04:50 MPV 9.5 fl (7.2-11.7) 04/30/17 07:15 Neut % (Auto) 79.4 % (50.0-75.0) H 04/30/17 07:15 Lymph % (Auto) 14.2 % (20.0-40.0) L 04/30/17 07:15 [place] % (Auto) 6.2 % (0.0-10.0) 04/30/17 07:15 Eos % (Auto) 0.0 % (0.0-4.0) 04/30/17 07:15 Baso % (Auto) 0.2 % (0.0-2.0) 04/30/17 07:15 Neut # 7.2 K/uL (1.8-7.0) H 04/30/17 07:15 Lymph # 1.3 K/uL (1.0-4.3) 04/30/17 07:15 [place] # 0.6 K/uL (0.0-0.8) 04/30/17 07:15 Eos # 0.0 K/uL (0.0-0.7) 04/30/17 07:15 Baso # 0.0 K/uL (0.0-0.2) 04/30/17 07:15 PT 12.5 Seconds (9.8-13.1) 04/30/17 09:28 INR 1.1 (0.9-1.2) 04/30/17 09:28 pCO2 45 mm/Hg (35-45) 05/01/17 07:30 pO2 97 mm/Hg (80-100) 05/01/17 07:30 HCO3 23.6 mmol/L (21-28) 05/01/17 07:30 ABG pH 7.34 (7.35-7.45) L 05/01/17 07:30 ABG Total CO2 25.7 mmol/L (22-28) 05/01/17 07:30 ABG O2 Saturation 98.7 % (95-98) H 05/01/17 07:30 ABG O2 Content 16.4 ML/dL (15-23) 05/01/17 07:30 ABG Base Excess -1.7 mmol/L (-2.0-3.0) 05/01/17 07:30 ABG Hemoglobin 12.1 g/dL (11.7-17.4) 05/01/17 07:30 ABG Carboxyhemoglobin 1.7 % (0.5-1.5) H 05/01/17 07:30 POC ABG HHb (Measured) 1.3 % (0.0-5.0) 05/01/17 07:30 ABG Methemoglobin 1.4 % (0.0-3.0) 05/01/17 07:30 ABG O2 Capacity 16.6 mL/dL (16-24) 05/01/17 07:30 Leonides Test Yes 05/01/17 07:30 A-a O2 Difference 132.0 mm/Hg 05/01/17 07:30 Hgb O2 Saturation 95.6 % (95.0-98.0) 05/01/17 07:30 FiO2 40.0 % 05/01/17 07:30 Sodium 144 mmol/l (132-148) 05/02/17 04:50 Potassium 4.0 MMOL/L (3.6-5.0) 05/02/17 04:50 Chloride 109 mmol/L (98-107) H 05/02/17 04:50 Carbon Dioxide 27 mmol/L (22-30) 05/02/17 04:50 Anion Gap 12 (10-20) 05/02/17 04:50 BUN 22 mg/dl (7-17) H 05/02/17 04:50 Creatinine 1.0 mg/dl (0.7-1.2) 05/02/17 04:50 Est GFR ( Amer) > 60 05/02/17 04:50 Est GFR (Non-Af Amer) 52 05/02/17 04:50 POC Glucose (mg/dL) 146 mg/dL (65-110) H 05/04/17 11:23 Random Glucose 107 mg/dL (65-105) H 05/02/17 04:50 Calcium 9.4 mg/dL (8.4-10.2) 05/02/17 04:50 Total Bilirubin 1.8 mg/dl (0.2-1.3) H 05/02/17 04:50 AST 44 U/L (14-36) H 05/02/17 04:50 ALT 71 U/L (9-52) H D 05/02/17 04:50 Alkaline Phosphatase 56 U/L (38-126) 05/02/17 04:50 Troponin I 0.4330 ng/mL (0.00-0.120) H* 05/01/17 09:35 Total Protein 6.4 G/DL (6.3-8.2) 05/02/17 04:50 Albumin 3.4 g/dL (3.5-5.0) L 05/02/17 04:50 Globulin 2.9 gm/dL (2.2-3.9) 05/02/17 04:50 Albumin/Globulin Ratio 1.2 (1.0-2.1) 05/02/17 04:50 - Hospital Course Hospital Course: 86 yr old F with HTN admitted for complete heart block and NSTEMI, pacemaker battery depleted. Patient was evaluated by cardiology, medications were optimized and pacemaker battery was changed. Patient tolerated some PT/OT and is medically stable for discharge to TCU for further PT/OT required for her deconditioning. - Date & Time of H&P Date of H&P: 04/30/17 Time of H&P: 12:52 Discharge Exam - Head Exam Head Exam: ATRAUMATIC, NORMOCEPHALIC - Eye Exam Eye Exam: EOMI - ENT Exam ENT Exam: Mucous Membranes Moist - Neck Exam Neck exam: Full Rom - Respiratory Exam Respiratory Exam: NORMAL BREATHING PATTERN - Cardiovascular Exam Cardiovascular Exam: REGULAR RHYTHM, +S1, +S2 - GI/Abdominal Exam GI & Abdominal Exam: Normal Bowel Sounds, Soft (obese) - Extremities Exam Extremities exam: full ROM - Neurological Exam Neurological exam: Alert, CN II-XII Intact, Oriented x3 - Psychiatric Exam Psychiatric exam: Normal Affect, Normal Mood - Skin Skin Exam: Dry, Intact, Warm Discharge Plan - Follow Up Plan Condition: GUARDED Disposition: REHAB FACILITY/REHAB UNIT Additional Instructions: Discharge to TCU for PT/OT Clinical Quality Measures - Date & Time of Discharge Summary Date of Discharge Summary: 05/04/17 Time of Discharge Summary: 13:33
[2017-05-04 16:25] VITALS: BP 115/79; PULSE 87; RESP 20; TEMP 98.5; O2SAT 93
== END 2017-05-04 18:55 | DRG 258 ==
LOC: H.ER 06:49 → H.ERHOLD 08:48 → H.ICU/CCU 14:16 → H.MEDSURG1 05-03 15:33
PROVIDERS: ADMIT Family Medicine; ATTEND Family Medicine
PROC: 0JPT0PZ Removal of Cardiac Rhythm Related Device from Trunk Subcutaneous Tissue and Fascia, Open Approach (ICD-10-PCS; 2017-04-30)
PROC: 0JH606Z Insertion of Pacemaker, Dual Chamber into Chest Subcutaneous Tissue and Fascia, Open Approach (ICD-10-PCS; principal; 2017-04-30 10:00)
DX: I44.2 Atrioventricular block, complete (principal); I21.4 Non-ST elevation (NSTEMI) myocardial infarction; R06.89 Other abnormalities of breathing; Z88.0 Allergy status to penicillin; I10 Essential (primary) hypertension; M19.90 Unspecified osteoarthritis, unspecified site; Z86.73 Personal history of transient ischemic attack (TIA), and cerebral infarction without residual deficits; I25.10 Atherosclerotic heart disease of native coronary artery without angina pectoris

== ENCOUNTER 2017-05-04 14:03 | Inpatient (IN) | payer OTHER, BC ==
[2017-05-04 20:05] VITALS: RESP 20
[2017-05-04] MEDS: Latanoprost 0.005% Opht SOUTION OU SCH (22:10)
[2017-05-05] MEDS: Enoxaparin 30 mg Syringe SC SCH (09:45)
[2017-05-05] MEDS: Latanoprost 0.005% Opht SOUTION OU SCH (21:04)
[2017-05-06] MEDS: Enoxaparin 30 mg Syringe SC SCH (08:32)
[2017-05-06] MEDS ORDERED: Oxycodone/Acetaminophen 5/325 mg Tab PO PRN ×2 (12:12→15:24)
[2017-05-06 14:41] VITALS: BMI 26.9
[2017-05-06] MEDS: Latanoprost 0.005% Opht SOUTION OU SCH (21:04)
[2017-05-07] MEDS: Enoxaparin 30 mg Syringe SC SCH (08:13)
[2017-05-07] MEDS: Latanoprost 0.005% Opht SOUTION OU SCH (21:08)
[2017-05-08] MEDS: Enoxaparin 30 mg Syringe SC SCH (08:36)
[2017-05-08 09:44] LABS: ALB/GLOB RATIO 1.2 (1.0-2.1); ALBUMIN 3.6 g/dL (3.5-5.0); ALT/SGPT 40 U/L (9-52); AST/SGOT 24 U/L (14-36); BLOOD UREA NITROGEN 18 mg/dl (7-17); CALCIUM 9.5 mg/dL (8.4-10.2); GFR AFRICAN-AMERICAN > 60; GFR NON-AFRICAN AMERICAN 59
[2017-05-08 10:05] LABS: BASO % 0.2 % (0.0-2.0); LYMPH # 1.2 K/uL (1.0-4.3); LYMPH % 24.3 % (20.0-40.0); MEAN CELL VOLUME 88.4 fl (81.0-99.0); MEAN CORPUSCULAR HEMOGLOBIN 29.4 pg (27.0-31.0); MEAN CORPUSCULAR HGB CONC 33.3 g/dL (33.0-37.0); MONO # 0.6 K/uL (0.0-0.8); MONO % 10.9 % (0.0-10.0); NEUT # 3.3 K/uL (1.8-7.0); NEUT % 64.6 % (50.0-75.0); RBC 4.09 Mil/uL (3.80-5.20); RED CELL DISTRIBUTION WIDTH 14.1 % (11.5-14.5); WHITE BLOOD COUNT 5.1 K/uL (4.8-10.8)
--- NOTE | 2017-05-08 11:46 | CP.PCM.HP ---
History of Present Illness - History of Present Illness History of Present Illness: This is an 86 y/o female admitted for further PT and rehab,. She was so debilitated after hospitalized for non functioning pacemaker battery and replacement. She developed nonSTEMI during hospitaization. She was in ICU and recuperated well and started PT. 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 Has a hx of HTN, hyperlipidemia Chronic back pain Present on Admission - Present on Admission Any Indicators Present on Admission: No History of DVT/PE: No History of Uncontrolled Diabetes: No Urinary Catheter: No Decubitus Ulcer Present: No Past Patient History - Past Medical History & Family History Past Medical History?: Yes - Past Social History Smoking Status: Never Smoked - CARDIAC Hx Cardiac Disorders: Yes Hx Angina: No Hx Pacemaker: Yes - PULMONARY Hx Respiratory Disorders: No - NEUROLOGICAL Hx Neurological Disorder: Yes Other/Comment: CVA - HEENT Hx HEENT Problems: No - RENAL Hx Chronic Kidney Disease: No - ENDOCRINE/METABOLIC Hx Endocrine Disorders: No - HEMATOLOGICAL/ONCOLOGICAL Hx Blood Disorders: No - INTEGUMENTARY Hx Dermatological Problems: No - MUSCULOSKELETAL/RHEUMATOLOGICAL Hx Musculoskeletal Disorders: Yes Hx Falls: No - GASTROINTESTINAL Hx Gastrointestinal Disorders: No - GENITOURINARY/GYNECOLOGICAL Hx Genitourinary Disorders: Yes - PSYCHIATRIC Hx Emotional Abuse: No Hx Physical Abuse: No Hx Substance Use: No - SURGICAL HISTORY Hx Coronary Artery Bypass Graft: No - ANESTHESIA Hx Anesthesia: No Meds Allergies/Adverse Reactions: Allergies Allergy/AdvReac Type Severity Reaction Status Date / Time Penicillins Allergy RASH Verified 05/04/17 17:26 Physical Exam - Head Exam Head Exam: NORMAL INSPECTION - Eye Exam Eye Exam: Normal appearance - ENT Exam ENT Exam: Mucous Membranes Moist - Respiratory Exam Respiratory Exam: Clear to Auscultation Bilateral - Cardiovascular Exam Cardiovascular Exam: REGULAR RHYTHM ( ) - GI/Abdominal Exam GI & Abdominal Exam: Normal Bowel Sounds - Neurological Exam Neurological exam: CN II-XII Intact, Oriented x3 - Psychiatric Exam Psychiatric exam: Normal Mood Results - Vital Signs Recent Vital Signs: Last Vital Signs Temp 97.6 F 05/08/17 08:09 Pulse 90 05/08/17 08:36 Resp 20 05/08/17 08:09 BP 126/56 L 05/08/17 08:36 Pulse Ox 100 05/08/17 08:09 - Labs Result Diagrams: 05/08/17 10:00 05/08/17 09:07 Labs: Laboratory Results - last 24 hr 05/08/17 05/08/17 05/08/17 09:07 09:07 10:00 WBC Cancelled 5.1 RBC Cancelled 4.09 Hgb Cancelled 12.0 Hct Cancelled 36.2 MCV Cancelled 88.4 MCH Cancelled 29.4 MCHC Cancelled 33.3 RDW Cancelled 14.1 Plt Count Cancelled 218 MPV 9.0 Neut % (Auto) 64.6 Lymph % (Auto) 24.3 [place] % (Auto) 10.9 H Eos % (Auto) 0.0 Baso % (Auto) 0.2 Neut # 3.3 Lymph # 1.2 [place] # 0.6 Eos # 0.0 Baso # 0.0 Sodium 143 Potassium 4.1 Chloride 106 Carbon Dioxide 26 Anion Gap 15 BUN 18 H Creatinine 0.9 Est GFR ( Amer) > 60 Est GFR (Non-Af Amer) 59 Random Glucose 120 H Calcium 9.5 Total Bilirubin 1.5 H AST 24 ALT 40 Alkaline Phosphatase 57 Total Protein 6.7 Albumin 3.6 Globulin 3.1 Albumin/Globulin Ratio 1.2 Assessment & Plan (1) Chronic back pain Status: Acute (2) Gait abnormality Status: Acute (3) Lumbosacral radiculopathy Status: Acute (4) NSTEMI (non-ST elevated myocardial infarction) Status: Acute Priority: Low (5) Heart block AV third degree Status: Resolved Priority: Low - Assessment and Plan (Free Text) Plan: Start PT Cont meds Pain meds continue all cardiac meds and lipid lowering meds.
--- NOTE | 2017-05-08 11:51 | CP.PCM.PN ---
Subjective - Date & Time of Evaluation Date of Evaluation: 05/06/17 Time of Evaluation: 11:49 - Subjective Subjective: Patient complains of a lot of pain radiating to the right lower ext. Currently on Tramadol Has some constipation Has no chest pain or SOB Objective - Vital Signs/Intake and Output Vital Signs (last 24 hours): Temp Pulse Resp BP Pulse Ox 97.6 F 90 20 126/56 L 100 05/08/17 08:09 05/08/17 08:36 05/08/17 08:09 05/08/17 08:36 05/08/17 08:09 - Medications Medications: Current Medications Aspirin (Ecotrin) 81 mg PO DAILY [facility] Last Admin: 05/08/17 08:36 Dose: 81 mg Atorvastatin Calcium (Lipitor) 40 mg PO HS [facility] Last Admin: 05/07/17 21:07 Dose: 40 mg Carvedilol (Coreg) 12.5 mg PO Q12 [facility] Last Admin: 05/08/17 08:36 Dose: 12.5 mg Cyclobenzaprine HCl (Flexeril) 5 mg PO DAILY [facility] Last Admin: 05/08/17 08:35 Dose: 5 mg Docusate Sodium (Colace) 100 mg PO BID [facility] Last Admin: 05/08/17 08:35 Dose: 100 mg Lactulose (Enulose) 20 gm PO DAILY PRN PRN Reason: Constipation Last Admin: 05/07/17 10:00 Dose: 20 gm Latanoprost (Xalatan Opht) 1 drop OU [facility] Last Admin: 05/07/17 21:08 Dose: 1 drop Oxycodone/Acetaminophen (Percocet 5/325 Mg Tab) 1 tab PO Q4 PRN PRN Reason: Pain, severe (8-10) Stop: 05/09/17 15:25 Tramadol HCl (Ultram) 50 mg PO Q6 PRN PRN Reason: Pain, moderate (4-7) Last Admin: 05/08/17 03:18 Dose: 50 mg - Labs Labs: 05/08/17 10:00 05/08/17 09:07 - Head Exam Head Exam: NORMAL INSPECTION - Eye Exam Eye Exam: Normal appearance - ENT Exam ENT Exam: Mucous Membranes Moist - Respiratory Exam Respiratory Exam: Clear to Ausculation Bilateral - Cardiovascular Exam Cardiovascular Exam: REGULAR RHYTHM - GI/Abdominal Exam GI & Abdominal Exam: Normal Bowel Sounds - Neurological Exam Neurological Exam: CN II-XII Intact, Normal Gait, Oriented x3 - Psychiatric Exam Psychiatric exam: Normal Mood Assessment and Plan (1) Chronic back pain Status: Acute (2) Gait abnormality Status: Acute (3) Lumbosacral radiculopathy Status: Acute (4) NSTEMI (non-ST elevated myocardial infarction) Status: Acute (5) Heart block AV third degree Status: Resolved - Assessment and Plan (Free Text) Plan: Cont meds Con ttx Cont PT pain meds stool softener
--- NOTE | 2017-05-08 11:52 | CP.PCM.PN ---
Subjective - Date & Time of Evaluation Date of Evaluation: 05/07/17 Time of Evaluation: 10:30 - Subjective Subjective: patient remains stable still with some constipation Has less pain Doing well with Tramadol Has no chest pain or SOB. Objective - Vital Signs/Intake and Output Vital Signs (last 24 hours): Temp Pulse Resp BP Pulse Ox 97.6 F 90 20 126/56 L 100 05/08/17 08:09 05/08/17 08:36 05/08/17 08:09 05/08/17 08:36 05/08/17 08:09 - Medications Medications: Current Medications Aspirin (Ecotrin) 81 mg PO DAILY [facility] Last Admin: 05/08/17 08:36 Dose: 81 mg Atorvastatin Calcium (Lipitor) 40 mg PO HS [facility] Last Admin: 05/07/17 21:07 Dose: 40 mg Carvedilol (Coreg) 12.5 mg PO Q12 [facility] Last Admin: 05/08/17 08:36 Dose: 12.5 mg Cyclobenzaprine HCl (Flexeril) 5 mg PO DAILY [facility] Last Admin: 05/08/17 08:35 Dose: 5 mg Docusate Sodium (Colace) 100 mg PO BID [facility] Last Admin: 05/08/17 08:35 Dose: 100 mg Lactulose (Enulose) 20 gm PO DAILY PRN PRN Reason: Constipation Last Admin: 05/07/17 10:00 Dose: 20 gm Latanoprost (Xalatan Opht) 1 drop OU [facility] Last Admin: 05/07/17 21:08 Dose: 1 drop Oxycodone/Acetaminophen (Percocet 5/325 Mg Tab) 1 tab PO Q4 PRN PRN Reason: Pain, severe (8-10) Stop: 05/09/17 15:25 Tramadol HCl (Ultram) 50 mg PO Q6 PRN PRN Reason: Pain, moderate (4-7) Last Admin: 05/08/17 03:18 Dose: 50 mg - Labs Labs: 05/08/17 10:00 05/08/17 09:07 - Head Exam Head Exam: NORMAL INSPECTION - Eye Exam Eye Exam: Normal appearance - ENT Exam ENT Exam: Mucous Membranes Moist - Respiratory Exam Respiratory Exam: Clear to Ausculation Bilateral - Cardiovascular Exam Cardiovascular Exam: Irregular Rhythm, REGULAR RHYTHM Additional comments: paced rhythm - GI/Abdominal Exam GI & Abdominal Exam: Normal Bowel Sounds - Neurological Exam Neurological Exam: CN II-XII Intact, Normal Gait Assessment and Plan (1) Chronic back pain Status: Acute (2) Gait abnormality Status: Acute (3) Lumbosacral radiculopathy Status: Acute (4) NSTEMI (non-ST elevated myocardial infarction) Status: Acute (5) Heart block AV third degree Status: Resolved
--- NOTE | 2017-05-08 11:55 | CP.PCM.PN ---
Subjective - Date & Time of Evaluation Date of Evaluation: 05/08/17 Time of Evaluation: 11:53 - Subjective Subjective: Patient feels a lot better today Did well with PT Had a good bm On Tramadol Has no chest pain or SOB Objective - Vital Signs/Intake and Output Vital Signs (last 24 hours): Temp Pulse Resp BP Pulse Ox 97.6 F 90 20 126/56 L 100 05/08/17 08:09 05/08/17 08:36 05/08/17 08:09 05/08/17 08:36 05/08/17 08:09 - Medications Medications: Current Medications Aspirin (Ecotrin) 81 mg PO DAILY [facility] Last Admin: 05/08/17 08:36 Dose: 81 mg Atorvastatin Calcium (Lipitor) 40 mg PO HS [facility] Last Admin: 05/07/17 21:07 Dose: 40 mg Carvedilol (Coreg) 12.5 mg PO Q12 [facility] Last Admin: 05/08/17 08:36 Dose: 12.5 mg Cyclobenzaprine HCl (Flexeril) 5 mg PO DAILY [facility] Last Admin: 05/08/17 08:35 Dose: 5 mg Docusate Sodium (Colace) 100 mg PO BID [facility] Last Admin: 05/08/17 08:35 Dose: 100 mg Lactulose (Enulose) 20 gm PO DAILY PRN PRN Reason: Constipation Last Admin: 05/07/17 10:00 Dose: 20 gm Latanoprost (Xalatan Opht) 1 drop OU HS [facility] Last Admin: 05/07/17 21:08 Dose: 1 drop Oxycodone/Acetaminophen (Percocet 5/325 Mg Tab) 1 tab PO Q4 PRN PRN Reason: Pain, severe (8-10) Stop: 05/09/17 15:25 Tramadol HCl (Ultram) 50 mg PO Q6 PRN PRN Reason: Pain, moderate (4-7) Last Admin: 05/08/17 03:18 Dose: 50 mg - Labs Labs: 05/08/17 10:00 05/08/17 09:07 - Head Exam Head Exam: NORMAL INSPECTION - Eye Exam Eye Exam: Normal appearance - ENT Exam ENT Exam: Mucous Membranes Moist - Respiratory Exam Respiratory Exam: Clear to Ausculation Bilateral - Cardiovascular Exam Cardiovascular Exam: REGULAR RHYTHM - GI/Abdominal Exam GI & Abdominal Exam: Normal Bowel Sounds - Neurological Exam Neurological Exam: Awake, Oriented x3 Assessment and Plan (1) Chronic back pain Status: Acute (2) Gait abnormality Status: Acute (3) Lumbosacral radiculopathy Status: Acute (4) NSTEMI (non-ST elevated myocardial infarction) Status: Acute (5) Heart block AV third degree Status: Resolved - Assessment and Plan (Free Text) Plan: Cont meds Con ttx Cont PT pain meds prn discussed with patient re discharge plans
[2017-05-08] MEDS: Latanoprost 0.005% Opht SOUTION OU SCH (21:07)
[2017-05-09] MEDS: Latanoprost 0.005% Opht SOUTION OU SCH (21:31)
[2017-05-10] MEDS: Latanoprost 0.005% Opht SOUTION OU SCH (22:09)
[2017-05-11 08:54] VITALS: PULSE 90
[2017-05-11 08:58] VITALS: BP 136/73; TEMP 97.9; O2SAT 91
--- NOTE | 2017-05-11 11:36 | CP.PCM.DIS ---
Provider - Provider Date of Admission: 05/04/17 18:50 Attending physician: Ramsey Horn MD Primary care physician: Dr. Horn Consults: 05/04/17 19:15 Pastoral Care Referral Routine Comment: Physician Instructions: Reason For Exam: advance directive Wound Care [Nursing Referral for Wound Care] Routine Comment: Physician Instructions: Reason For Exam: eval rash Time Spent in preparation of Discharge (in minutes): 30 Diagnosis - Discharge Diagnosis (1) Gait abnormality Status: Chronic Priority: Low (2) Lumbosacral radiculopathy Status: Chronic Priority: Low (3) NSTEMI (non-ST elevated myocardial infarction) Status: Acute Priority: Low Hospital Course - Lab Results Lab Results: Most Recent Lab Values WBC 5.1 K/uL (4.8-10.8) 05/08/17 10:00 RBC 4.09 Mil/uL (3.80-5.20) 05/08/17 10:00 Hgb 12.0 g/dL (12.0-16.0) 05/08/17 10:00 Hct 36.2 % (34.0-47.0) 05/08/17 10:00 MCV 88.4 fl (81.0-99.0) 05/08/17 10:00 MCH 29.4 pg (27.0-31.0) 05/08/17 10:00 MCHC 33.3 g/dL (33.0-37.0) 05/08/17 10:00 RDW 14.1 % (11.5-14.5) 05/08/17 10:00 Plt Count 218 K/uL (130-400) 05/08/17 10:00 MPV 9.0 fl (7.2-11.7) 05/08/17 10:00 Neut % (Auto) 64.6 % (50.0-75.0) 05/08/17 10:00 Lymph % (Auto) 24.3 % (20.0-40.0) 05/08/17 10:00 [place] % (Auto) 10.9 % (0.0-10.0) H 05/08/17 10:00 Eos % (Auto) 0.0 % (0.0-4.0) 05/08/17 10:00 Baso % (Auto) 0.2 % (0.0-2.0) 05/08/17 10:00 Neut # 3.3 K/uL (1.8-7.0) 05/08/17 10:00 Lymph # 1.2 K/uL (1.0-4.3) 05/08/17 10:00 [place] # 0.6 K/uL (0.0-0.8) 05/08/17 10:00 Eos # 0.0 K/uL (0.0-0.7) 05/08/17 10:00 Baso # 0.0 K/uL (0.0-0.2) 05/08/17 10:00 Sodium 143 mmol/l (132-148) 05/08/17 09:07 Potassium 4.1 MMOL/L (3.6-5.0) 05/08/17 09:07 Chloride 106 mmol/L (98-107) 05/08/17 09:07 Carbon Dioxide 26 mmol/L (22-30) 05/08/17 09:07 Anion Gap 15 (10-20) 05/08/17 09:07 BUN 18 mg/dl (7-17) H 05/08/17 09:07 Creatinine 0.9 mg/dl (0.7-1.2) 05/08/17 09:07 Est GFR ( Amer) > 60 05/08/17 09:07 Est GFR (Non-Af Amer) 59 05/08/17 09:07 POC Glucose (mg/dL) 94 mg/dL (65-110) 05/05/17 05:33 Random Glucose 120 mg/dL (65-105) H 05/08/17 09:07 Calcium 9.5 mg/dL (8.4-10.2) 05/08/17 09:07 Total Bilirubin 1.5 mg/dl (0.2-1.3) H 05/08/17 09:07 AST 24 U/L (14-36) 05/08/17 09:07 ALT 40 U/L (9-52) 05/08/17 09:07 Alkaline Phosphatase 57 U/L (38-126) 05/08/17 09:07 Total Protein 6.7 G/DL (6.3-8.2) 05/08/17 09:07 Albumin 3.6 g/dL (3.5-5.0) 05/08/17 09:07 Globulin 3.1 gm/dL (2.2-3.9) 05/08/17 09:07 Albumin/Globulin Ratio 1.2 (1.0-2.1) 05/08/17 09:07 - Hospital Course Hospital Course: 86 yr old F admitted to TCU for PT and rehabilitation s/p discharge from ICU where she was treated for NSTEMI, nonfunctioning pacemaker battery whihc was replaced. Patient did well and improved. Discussion with patient involved recommending further PT and rehabilitation, patient declines and wishes to go home. She is medically stable for discharge with instructions to follow up with PMD Dr. 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 - Date & Time of H&P Date of H&P: 05/05/17 Time of H&P: 10:41 Discharge Exam - Head Exam Head Exam: ATRAUMATIC, NORMOCEPHALIC - Eye Exam Eye Exam: EOMI - ENT Exam ENT Exam: Mucous Membranes Moist - Neck Exam Neck exam: Full Rom - Respiratory Exam Respiratory Exam: NORMAL BREATHING PATTERN - Cardiovascular Exam Cardiovascular Exam: REGULAR RHYTHM, +S1, +S2 - GI/Abdominal Exam GI & Abdominal Exam: Normal Bowel Sounds, Soft. absent: Tenderness - Extremities Exam Extremities exam: full ROM - Neurological Exam Neurological exam: Alert, CN II-XII Intact, Oriented x3 - Psychiatric Exam Psychiatric exam: Normal Affect, Normal Mood - Skin Skin Exam: Dry, Normal Color, Warm Discharge Plan - Discharge Medications Prescriptions: Aspirin [Ecotrin] 81 mg PO DAILY #30 tabec Carvedilol [Coreg] 12.5 mg PO Q12 #60 tab Cyclobenzaprine [Flexeril] 5 mg PO DAILY #30 tab Ergocalciferol (Vitamin D2) [Vitamin D2] 50,000 unit PO TH #8 capsule Fesoterodine Fumarate [Toviaz] 4 mg PO DAILY #30 tab.er.24h Lactulose [Enulose] 30 gm PO DAILY PRN #1 bottle PRN Reason: Constipation Latanoprost [Xalatan] 1 drop EACHEYE HS #1 bottle Linagliptin [Tradjenta] 5 mg PO DAILY #30 tablet Lisinopril [Zestril] 20 mg PO DAILY #30 tab Rosuvastatin Calcium [Crestor] 10 mg PO DAILY #30 tab - Follow Up Plan Condition: GOOD Disposition: HOME/ ROUTINE Patient education suggested?: Yes Instructions: Tramadol (By mouth), Myocardial Infarction (DC), Heart Block (DC) , Fall Prevention (DC), Pacemaker Generator Change (DC) Additional Instructions: followup with PMD Dr. 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 Diego Robles, [phone] Referrals: Ramsey Horn MD [Family Provider] - Clinical Quality Measures - Date & Time of Discharge Summary Date of Discharge Summary: 05/11/17 Time of Discharge Summary: 11:41
== END 2017-05-11 13:00 | disposition home health service (06) | DRG 281 ==
LOC: H.TCU 18:50
PROVIDERS: ADMIT Family Medicine; ATTEND Family Medicine
PROC: F07Z9FZ Gait Training/Functional Ambulation Treatment using Assistive, Adaptive, Supportive or Protective Equipment (ICD-10-PCS; principal; 2017-05-04)
PROC: F07M6FZ Therapeutic Exercise Treatment of Musculoskeletal System - Whole Body using Assistive, Adaptive, Supportive or Protective Equipment (ICD-10-PCS; 2017-05-04)
PROC: F08Z4FZ Home Management Treatment using Assistive, Adaptive, Supportive or Protective Equipment (ICD-10-PCS; 2017-05-04)
DX: I21.4 Non-ST elevation (NSTEMI) myocardial infarction (principal); I44.2 Atrioventricular block, complete; R26.9 Unspecified abnormalities of gait and mobility; E78.5 Hyperlipidemia, unspecified; G89.29 Other chronic pain; I10 Essential (primary) hypertension; K59.00 Constipation, unspecified; M54.17 Radiculopathy, lumbosacral region; Z95.0 Presence of cardiac pacemaker

== ENCOUNTER 2017-08-30 09:32 | Inpatient (IN) | payer MEDICARE, BC ==
[2017-08-30 09:37] VITALS: BMI 28.3
--- NOTE | 2017-08-30 10:40 | ED PDOC ---
Lower Extremity Pain/Injury Time Seen by Provider: 08/30/17 09:41 Chief Complaint (Nursing): Lower Extremity Problem/Injury Chief Complaint (Provider): left lower leg and foot pain History Per: Patient History/Exam Limitations: no limitations Onset/Duration Of Symptoms: Days (several) Current Symptoms Are (Timing): Still Present Additional Complaint(s): Aurea Enriquez is an 87 year old female, with a past medical history of diabetes, HTN and pacemaker, who presents to the emergency department complaining of left lower leg and foot pain ongoing for several days. Patient reports this morning she noticed a blister to her heel which prompted ED visit. Patient states she noticed chills over the last several days but denies any fever, fall or trauma, recent infections to the skin or feet. No further medical complaints. PMD: None provided. Past Medical History Reviewed: Historical Data, Nursing Documentation, Vital Signs Vital Signs: Last Vital Signs Temp 98.3 F 08/30/17 09:36 Pulse 100 H 08/30/17 09:36 Resp BP 152/76 H 08/30/17 09:36 Pulse Ox 98 08/30/17 09:38 - Medical History PMH: Anxiety, Arthritis, CAD, Depression, Diabetes, Fractures, HTN, Peripheral Edema Denies: Alzheimer's Disease, Anemia, Asthma, Atrial Fibrillation, Bronchitis , Cardia Arrhythmia, CHF, COPD, Dementia, Emphysema, HIV, Hypercholesterolemia, Hyperthyroidism, Hypothyroidism, Kidney Stones, Migraine, Mitral Valve Prolapse , Multiple Sclerosis, Parkinson's Disease, Pneumonia, Pulmonary Embolism, Chronic Kidney Disease, Seizures, Sickle Cell Disease, Sleep Apnea, TIA - Surgical History Surgical History: Appendectomy, Pacemaker Denies: CABG - Family History Family History: States: Unknown Family Hx - Home Medications Home Medications: Ambulatory Orders Medication Instructions Recorded Aspirin [Ecotrin] 81 mg PO DAILY 08/30/17 Carvedilol [Coreg] 12.5 mg PO Q12 08/30/17 Ergocalciferol (Vitamin D2) 50,000 unit PO SAT 08/30/17 [Vitamin D2] Fesoterodine Fumarate [Toviaz] 4 mg PO DAILY 08/30/17 Latanoprost [Xalatan] 1 drop EACHEYE HS 08/30/17 Lidocaine 5% [Lidoderm] 1 patch TD DAILY PRN 08/30/17 Linagliptin [Tradjenta] 5 mg PO DAILY 08/30/17 Lisinopril [Zestril] 20 mg PO DAILY 08/30/17 Rosuvastatin Calcium [Crestor] 10 mg PO HS 08/30/17 traMADol [Ultram] 50 mg PO Q12 08/30/17 Silver Sulfadiazine 1% 50 gm 1 applic TOP DAILY #1 jar 09/03/17 [Silvadene 1% 50 gm] Sulfamethoxazole/Trimethoprim 1 each PO DAILY #7 tablet 09/03/17 [Bactrim Ds Tablet] - Allergies Allergies/Adverse Reactions: Allergies Allergy/AdvReac Type Severity Reaction Status Date / Time Penicillins Allergy RASH Verified 08/30/17 09:38 Review of Systems ROS Statement: Except As Marked, All Systems Reviewed And Found Negative Constitutional: Positive for: Chills, Weakness (generalized). Negative for: Fever Gastrointestinal: Positive for: Nausea Musculoskeletal: Positive for: Leg Pain (left lower extremity pain, redness and swelling) Physical Exam - Reviewed Nursing Documentation Reviewed: Yes Vital Signs Reviewed: Yes - Physical Exam Appears: Positive for: Non-toxic Head Exam: Positive for: ATRAUMATIC, NORMOCEPHALIC Skin: Positive for: Normal Color, Warm, Dry Eye Exam: Positive for: Normal appearance, EOMI, PERRL ENT: Positive for: Normal ENT Inspection Neck: Positive for: Painless ROM Cardiovascular/Chest: Positive for: Regular Rate, Rhythm. Negative for: Murmur Respiratory: Positive for: Normal Breath Sounds. Negative for: Respiratory Distress Gastrointestinal/Abdominal: Positive for: Normal Exam, Soft. Negative for: Tenderness Back: Positive for: Normal Inspection. Negative for: L CVA Tenderness, R CVA Tenderness, Vertebral Tenderness Extremity: Positive for: Normal ROM (upper and lower extremities), Swelling ( left ankle edemitus w/ erythema and fluctuance. Erythema tracking up lower extremity to mid tibia.), Other (Blister to the calcaneus/heel. Right lower extremity mild chronic appearing erythema to the foot and ankle. Knee and hip unremarkable). Negative for: Deformity Neurologic/Psych: Positive for: Alert, Oriented. Negative for: Motor/Sensory Deficits - Laboratory Results Result Diagrams: 09/03/17 07:10 09/03/17 07:10 - ECG O2 Sat by Pulse Oximetry: 98 (RA) Pulse Ox Interpretation: Normal Medical Decision Making Medical Decision Making: Time: 09:41 Initial Impression: r/o sepsis/cellulitis/occult injury or fracture to the foot. Initial Plan: --VBG --CMP --CBC w/ differential --Chest portable [RAD] --Toradol 15mg IVP --Blood culture --Ankle left 3 views routine [RAD] --Foot left 3 views routine [RAD] --Tibia Fibula left [RAD] --Urinalysis --Podiatry consult --Reevaluation 11:14 Ankle X-Ray FINDINGS: BONES: Osteopenia. No acute fracture. Surgical tacks along the lateral calcaneus JOINTS: Degenerative changes. Ankle mortise maintained. Talar dome intact SOFT TISSUES: Bimalleolar soft tissue swelling. OTHER FINDINGS: Spurring at the Achilles tendon insertion. IMPRESSION: Bimalleolar soft tissue swelling without demonstrated fracture or dislocation. 11:15 Foot X-Ray FINDINGS: BONES: Osteopenia. No acute fracture. Surgical tacks along the lateral calcaneus. JOINTS: Degenerative changes. SOFT TISSUES: Bimalleolar soft tissue swelling. OTHER FINDINGS: None. IMPRESSION: Bimalleolar soft tissue swelling without demonstrated fracture or dislocation. 11:15 Tibia/Fibula X-Ray FINDINGS: BONES: No fracture or destructive lesion. Surgical tacks along the lateral calcaneus. JOINT SPACES: Mild tibial femoral compartment narrowing. OTHER FINDINGS: None. IMPRESSION: Unremarkable radiographs of the left tibia and fibula. 11:16 CXR FINDINGS: LUNGS: Stable chronic prominence of the bilateral interstitial markings with superimposed pulmonary vascular congestion not excluded. PLEURA: No significant pleural effusion identified, no pneumothorax apparent. CARDIOVASCULAR: Right subclavian pacemaker redemonstrated. A sclerotic aortic calcifications. Cardiomediastinal silhouette stably enlarged. OSSEOUS STRUCTURES: Unchanged. VISUALIZED UPPER ABDOMEN: Normal. OTHER FINDINGS: None. IMPRESSION: No active disease. --------- Given large area involved, over joint w evidence bullae formation admit to hospital for further management podiatry consulted agrees w plan Dr Kory RICARDO contacted for admission Scribe Attestation: Documented by Oni Hughes, acting as a scribe for Eddie Leon MD Provider Scribe Attestation: All medical record entries made by the Scribe were at my direction and personally dictated by me. I have reviewed the chart and agree that the record accurately reflects my personal performance of the history, physical exam, medical decision making, and the department course for this patient. I have also personally directed, reviewed, and agree with the discharge instructions and disposition. Disposition - Clinical Impression Clinical Impression: Cellulitis - Patient ED Disposition Is Patient to be Admitted: Yes - Disposition Disposition Time: 11:15 Condition: FAIR - Pt Status Changed To: Hospital Disposition Of: Inpatient - Admit Certification Admit to Inpatient:: After my assessment, the patient will require hospitalization for at least two midnights. This is because of the severity of symptoms shown, intensity of services needed, and/or the medical risk in this patient being treated as an outpatient. - POA Present On Arrival: None
--- NOTE | 2017-08-30 11:16 | RAD ---
PROCEDURE: Left Foot Radiographs. HISTORY: L foot/ankle pain redness COMPARISON: None. FINDINGS: BONES: Osteopenia. No acute fracture. Surgical tacks along the lateral calcaneus. JOINTS: Degenerative changes. SOFT TISSUES: Bimalleolar soft tissue swelling. OTHER FINDINGS: None. IMPRESSION: Bimalleolar soft tissue swelling without demonstrated fracture or dislocation.
--- NOTE | 2017-08-30 11:16 | RAD ---
PROCEDURE: Left Ankle Radiographs. HISTORY: L foot/ankle pain redness COMPARISON: None FINDINGS: BONES: Osteopenia. No acute fracture. Surgical tacks along the lateral calcaneus JOINTS: Degenerative changes. Ankle mortise maintained. Talar dome intact SOFT TISSUES: Bimalleolar soft tissue swelling. OTHER FINDINGS: Spurring at the Achilles tendon insertion. IMPRESSION: Bimalleolar soft tissue swelling without demonstrated fracture or dislocation.
--- NOTE | 2017-08-30 11:17 | RAD ---
PROCEDURE: Radiographs of the left tibia and fibula. HISTORY: L foot/ankle pain redness COMPARISON: None available. TECHNIQUE: Frontal and lateral views obtained. FINDINGS: BONES: No fracture or destructive lesion. Surgical tacks along the lateral calcaneus. JOINT SPACES: Mild tibial femoral compartment narrowing. OTHER FINDINGS: None. IMPRESSION: Unremarkable radiographs of the left tibia and fibula.
--- NOTE | 2017-08-30 11:18 | RAD ---
HISTORY: SOB COMPARISON: Chest radiograph dated 05/01/2017. FINDINGS: LUNGS: Stable chronic prominence of the bilateral interstitial markings with superimposed pulmonary vascular congestion not excluded. PLEURA: No significant pleural effusion identified, no pneumothorax apparent. CARDIOVASCULAR: Right subclavian pacemaker redemonstrated. A sclerotic aortic calcifications. Cardiomediastinal silhouette stably enlarged. OSSEOUS STRUCTURES: Unchanged. VISUALIZED UPPER ABDOMEN: Normal. OTHER FINDINGS: None. IMPRESSION: No active disease.
[2017-08-30 12:12] LABS: BASO % 0.2 % (0.0-2.0); HEMOGLOBIN 14.1 g/dL (12.0-16.0); LYMPH # 1.4 K/uL (1.0-4.3); LYMPH % 14.6 % (20.0-40.0); MEAN CELL VOLUME 87.3 fl (81.0-99.0); MEAN CORPUSCULAR HEMOGLOBIN 29.1 pg (27.0-31.0); MEAN CORPUSCULAR HGB CONC 33.4 g/dL (33.0-37.0); MEAN PLATELET VOLUME 8.9 fl (7.2-11.7); MONO # 0.9 K/uL (0.0-0.8); MONO % 9.9 % (0.0-10.0); NEUT # 7.1 K/uL (1.8-7.0); NEUT % 75.3 % (50.0-75.0); RBC 4.84 Mil/uL (3.80-5.20); RED CELL DISTRIBUTION WIDTH 14.3 % (11.5-14.5); WHITE BLOOD COUNT 9.4 K/uL (4.8-10.8)
[2017-08-30 12:22] LABS: VENOUS BLOOD GAS BASE EXCESS 6.6 mmol/L (0.0-2.0); VENOUS BLOOD GAS PCO2 47 mmHg (40-60); VENOUS BLOOD GAS PO2 17 mm/Hg (30-55); VENOUS BLOOD PH 7.44 (7.32-7.43)
[2017-08-30 12:23] LABS: ALB/GLOB RATIO 1.1 (1.0-2.1); ALBUMIN 4.2 g/dL (3.5-5.0); ALT/SGPT 32 U/L (9-52); AST/SGOT 29 U/L (14-36); BLOOD UREA NITROGEN 16 mg/dl (7-17); CALCIUM 10.2 mg/dL (8.4-10.2); GFR AFRICAN-AMERICAN > 60; GFR NON-AFRICAN AMERICAN > 60
[2017-08-30 12:46] LABS: SQUAMOUS EPITHIAL 4 /hpf (0-5); URINE BACTERIA OCC (<OCC); URINE BILIRUBIN NEGATIVE (NEGATIVE); URINE BLOOD SMALL (NEGATIVE); URINE CLARITY TURBID (Clear); URINE COLOR AMBER (YELLOW); URINE GLUCOSE (UA) NEG (Normal); URINE LEUKOCYTE ESTERASE SMALL Leu/uL (Negative); URINE PROTEIN NEGATIVE (NEGATIVE); URINE UROBILINOGEN 0.2-1.0 mg/dL (0.2-1.0)
--- NOTE | 2017-08-30 14:18 | CP.PCM.CON ---
History of Present Illness - History of Present Illness History of Present Illness: Podiatry Consult note: Dr. Monroy 87 year old female patient PMHx of DM, HTN, hypercholestrolemia, pacemaker was seen and evaluated at bedside in ED complaining of left foot pain. Patient reports that she has had redness on her legs for a long time and her PCP advised her to put a cream on daily. Patient does not recall the name of the cream at this time. Patient states that she has been having fevers on and off for the past couple of weeks. Reports that this morning she woke up with a blister on her left heel. Reports that the left leg was red and swollen as well. Reports that the pain level also increased since yesterday. Patient denies of having any recent injury or stepping on anything which could have led to the blistering. Patient denies of any recent N/V/C/SOB/CP/headache/diarrhea. Denies of any other pedal complains at this time PMHx: DM, HTN, Hypercholestrolemia, pacemaker PSHx: Right THR Allergies: Penicillins SHx: Denies smoking, EtOH or illicit drug usage, lives home alone with home-aid Review of Systems - Constitutional Constitutional: As Per HPI Past Patient History - Past Medical History & Family History Past Medical History?: Yes - Past Social History Smoking Status: Never Smoked - CARDIAC Hx Atrial Fibrillation: No Hx Cardia Arrhythmia: No Hx Congestive Heart Failure: No Hx Hypercholesterolemia: No Hx Hypertension: Yes Hx Mitral Valve Prolapse: No Hx Pacemaker: Yes Hx Peripheral Edema: Yes - PULMONARY Hx Asthma: No Hx Bronchitis: No Hx Chronic Obstructive Pulmonary Disease (COPD): No Hx Emphysema: No Hx Pneumonia: No Hx Pulmonary Embolism: No Hx Sleep Apnea: No - NEUROLOGICAL Hx Alzheimer's Disease: No Hx Dementia: No Hx Migraine: No Hx Multiple Sclerosis: No Hx Parkinson's Disease: No Hx Seizures: No Hx Transient Ischemic Attacks (TIA): No - HEENT Hx HEENT Problems: No - RENAL Hx Chronic Kidney Disease: No Hx Kidney Stones: No - ENDOCRINE/METABOLIC Hx Hyperthyroidism: No Hx Hypothyroidism: No - HEMATOLOGICAL/ONCOLOGICAL Hx Anemia: No Hx Human Immunodeficiency Virus (HIV): No Hx Sickle Cell Disease: No - INTEGUMENTARY Hx Dermatological Problems: No - MUSCULOSKELETAL/RHEUMATOLOGICAL Hx Arthritis: Yes Hx Fractures: Yes - GASTROINTESTINAL Hx Gastrointestinal Disorders: No - GENITOURINARY/GYNECOLOGICAL Hx Genitourinary Disorders: Yes - PSYCHIATRIC Hx Anxiety: Yes Hx Depression: Yes - SURGICAL HISTORY Hx Appendectomy: Yes Hx Coronary Artery Bypass Graft: No - ANESTHESIA Hx Anesthesia: Yes Hx Anesthesia Reactions: No Meds Allergies/Adverse Reactions: Allergies Allergy/AdvReac Type Severity Reaction Status Date / Time Penicillins Allergy RASH Verified 08/30/17 09:38 - Medications Medications: Current Medications Vancomycin HCl 1 gm/ Sodium (Chloride) 250 mls @ 166.667 mls/hr IVPB ONCE ONE PRN Reason: Protocol Stop: 08/30/17 14:59 Last Admin: 08/30/17 14:08 Dose: 166.667 mls/hr Physical Exam - Constitutional Appears: Well, Non-toxic, No Acute Distress - Extremities Exam Additional comments: Bilateral LE exam VASC: DP pulses are palpable 2/4, PT pulses are palpable 1/4 on the left and 2/ 4 on the right, Cap refill time: < 3 sec to all digits, Temp gradient: warm to cool from proximal to distal on the right and warm to warmer on the left, 1+ pitting edema noted on the distal medial aspect of the left leg accompanied with erythema which extends from the foot up to the mid leg level DERM: Bullae measuring approx 4.5 cm x 5.0 cm noted on the plantar-posterior- lateral heel with hyperkeratotic lesion on the plantar medial heel, bullae appears to be fluctuant, suspicion of a wound deep to the superficial epidermal layer, suspicious of active infection at this time NEURO: Protective sensation mildly diminished, motor sensation grossly intact ORTHO: Pain on palpation of the bullae site, pain during PROM and AROM at the ankle joint - Neurological Exam Neurological exam: Alert, Oriented x3 - Psychiatric Exam Psychiatric exam: Normal Affect, Normal Mood Results - Vital Signs Recent Vital Signs: Last Vital Signs Temp 98.3 F 08/30/17 09:36 Pulse 100 H 08/30/17 09:36 Resp BP 152/76 H 08/30/17 09:36 Pulse Ox 98 08/30/17 13:02 - Labs Result Diagrams: 08/30/17 11:32 08/30/17 11:32 Labs: Laboratory Results - last 24 hr 08/30/17 08/30/17 08/30/17 11:32 11:32 12:12 WBC 9.4 D RBC 4.84 Hgb 14.1 D Hct 42.2 MCV 87.3 MCH 29.1 MCHC 33.4 RDW 14.3 Plt Count 229 MPV 8.9 Neut % (Auto) 75.3 H Lymph % (Auto) 14.6 L [place] % (Auto) 9.9 Eos % (Auto) 0.0 Baso % (Auto) 0.2 Neut # (Auto) 7.1 H Lymph # (Auto) 1.4 [place] # (Auto) 0.9 H Eos # (Auto) 0.0 Baso # (Auto) 0.0 pO2 17 L VBG pH 7.44 H VBG pCO2 47 VBG HCO3 28.1 VBG Total CO2 33.3 H VBG O2 Sat (Calc) 17.7 L VBG Base Excess 6.6 H VBG Potassium 4.4 Glucose 124 H Lactate 1.7 FiO2 21.0 Sodium 142 141.0 Potassium 4.3 Chloride 99 105.0 Carbon Dioxide 29 Anion Gap 18 BUN 16 Creatinine 0.7 Est GFR ( Amer) > 60 Est GFR (Non-Af Amer) > 60 Random Glucose 116 H Calcium 10.2 Total Bilirubin 1.6 H AST 29 ALT 32 Alkaline Phosphatase 74 Total Protein 8.0 Albumin 4.2 Globulin 3.8 Albumin/Globulin Ratio 1.1 Venous Blood Potassium 4.4 Urine Color Urine Clarity Urine pH Ur Specific [place] Urine Protein Urine Glucose (UA) Urine Ketones Urine Blood Urine Nitrate Urine Bilirubin Urine Urobilinogen Ur Leukocyte Esterase Urine RBC (Auto) Urine Microscopic WBC Ur Squamous Epith Cells Urine Bacteria Urine Yeast (Budding) 08/30/17 12:20 WBC RBC Hgb Hct MCV MCH MCHC RDW Plt Count MPV Neut % (Auto) Lymph % (Auto) [place] % (Auto) Eos % (Auto) Baso % (Auto) Neut # (Auto) Lymph # (Auto) [place] # (Auto) Eos # (Auto) Baso # (Auto) pO2 VBG pH VBG pCO2 VBG HCO3 VBG Total CO2 VBG O2 Sat (Calc) VBG Base Excess VBG Potassium Glucose Lactate FiO2 Sodium Potassium Chloride Carbon Dioxide Anion Gap BUN Creatinine Est GFR ( Amer) Est GFR (Non-Af Amer) Random Glucose Calcium Total Bilirubin AST ALT Alkaline Phosphatase Total Protein Albumin Globulin Albumin/Globulin Ratio Venous Blood Potassium Urine Color [place] Urine Clarity Turbid Urine pH 7.0 Ur Specific [place] 1.010 Urine Protein Negative Urine Glucose (UA) Neg Urine Ketones Negative Urine Blood Small Urine Nitrate Negative Urine Bilirubin Negative Urine Urobilinogen 0.2-1.0 Ur Leukocyte Esterase Small Urine RBC (Auto) 6 H Urine Microscopic WBC 5 Ur Squamous Epith Cells 4 Urine Bacteria Occ H Urine Yeast (Budding) Few H Assessment & Plan - Assessment and Plan (Free Text) Assessment: 87 year old female patient was evaluated for left foot 1). underlying infected wound 2). Cellulitis Plan: Patient seen and evaluated Discussed plan with attending Dr. Monroy Labs, vitals and charts reviewed - afebrile now, WBC @ 9.4 X-rays of the left foot and ankle ordered/reviewed - no signs of soft tissue emphysema or acute OM Bullae punctured following aseptic technique - bedside I&D performed and drained approx 10-15 cc of sero-purulent fluid from the site Wound cultures taken - pending Received Clinda/vanco while in ED ID on board, f/u recs Silvadine ordered Multipodus boots to be worn at all times while in bed Offloading heel wedge shoe ordered - weight bearing as tolerated to the forefoot in the shoe using cane or walker Thank you for the podiatry consult and allowing to take part in patient care Podiatry to follow patient while in-house - Date & Time Date: 08/30/17 Time: 14:48
[2017-08-30] MEDS ORDERED: Oxycodone/Acetaminophen 5/325 mg Tab PO PRN (14:43)
--- NOTE | 2017-08-30 14:57 | CP.PCM.HP ---
History of Present Illness - History of Present Illness History of Present Illness: 87 yo ,f, PMhx/o DM, HTN, HLD, pacemaker, presents c/o left lower leg and foot pain and swelling that started several days ago, and today in the morning patient noticed a blister in her left hell and decided to go to ED. She also reports subjective fever for 2 days . She denies cough, SOB, n,v,d, abd pain, dysuria, hematuria, insect bite, trauma. Patient reports to be most of the time sitting on a chair at home and does not walk to much. PMD: None provided. Present on Admission - Present on Admission Any Indicators Present on Admission: No History of DVT/PE: No History of Uncontrolled Diabetes: No Urinary Catheter: No Decubitus Ulcer Present: No Review of Systems - Review of Systems All systems: reviewed and no additional remarkable complaints except - Cardiovascular Cardiovascular: As Per HPI - Respiratory Respiratory: As Per HPI - Gastrointestinal Gastrointestinal: As Per HPI - Musculoskeletal Additional comments: hell pain ,swelling, blister Past Patient History - Past Medical History & Family History Past Medical History?: Yes - Past Social History Smoking Status: Never Smoked - CARDIAC Hx Atrial Fibrillation: No Hx Cardia Arrhythmia: No Hx Congestive Heart Failure: No Hx Hypercholesterolemia: No Hx Hypertension: Yes Hx Mitral Valve Prolapse: No Hx Pacemaker: Yes Hx Peripheral Edema: Yes - PULMONARY Hx Asthma: No Hx Bronchitis: No Hx Chronic Obstructive Pulmonary Disease (COPD): No Hx Emphysema: No Hx Pneumonia: No Hx Pulmonary Embolism: No Hx Sleep Apnea: No - NEUROLOGICAL Hx Alzheimer's Disease: No Hx Dementia: No Hx Migraine: No Hx Multiple Sclerosis: No Hx Parkinson's Disease: No Hx Seizures: No Hx Transient Ischemic Attacks (TIA): No - HEENT Hx HEENT Problems: No - RENAL Hx Chronic Kidney Disease: No Hx Kidney Stones: No - ENDOCRINE/METABOLIC Hx Hyperthyroidism: No Hx Hypothyroidism: No - HEMATOLOGICAL/ONCOLOGICAL Hx Anemia: No Hx Human Immunodeficiency Virus (HIV): No Hx Sickle Cell Disease: No - INTEGUMENTARY Hx Dermatological Problems: No - MUSCULOSKELETAL/RHEUMATOLOGICAL Hx Arthritis: Yes Hx Fractures: Yes - GASTROINTESTINAL Hx Gastrointestinal Disorders: No - GENITOURINARY/GYNECOLOGICAL Hx Genitourinary Disorders: Yes - PSYCHIATRIC Hx Anxiety: Yes Hx Depression: Yes - SURGICAL HISTORY Hx Appendectomy: Yes Hx Coronary Artery Bypass Graft: No - ANESTHESIA Hx Anesthesia: Yes Hx Anesthesia Reactions: No Meds Allergies/Adverse Reactions: Allergies Allergy/AdvReac Type Severity Reaction Status Date / Time Penicillins Allergy RASH Verified 08/30/17 09:38 Physical Exam - Constitutional Appears: Non-toxic, No Acute Distress - Head Exam Head Exam: ATRAUMATIC, NORMOCEPHALIC - Eye Exam Eye Exam: Normal appearance - ENT Exam ENT Exam: Mucous Membranes Moist - Respiratory Exam Respiratory Exam: Clear to Auscultation Bilateral. absent: Rales, Rhonchi - Cardiovascular Exam Cardiovascular Exam: REGULAR RHYTHM, +S1, +S2 - GI/Abdominal Exam GI & Abdominal Exam: Normal Bowel Sounds, Soft. absent: Tenderness - Rectal Exam Rectal Exam: NORMAL INSPECTION - Extremities Exam Additional comments: left distal 1/3 anterior side of calf with cellulitis. left heel infected blister drained with purulent discharge. wound care done by podiatry. dressing c /d/i muscle strenght LLE normal - Back Exam Back exam: NORMAL INSPECTION - Neurological Exam Neurological exam: Alert, Oriented x3 - Psychiatric Exam Psychiatric exam: Normal Affect, Normal Mood - Skin Skin Exam: Erythema Results - Vital Signs Recent Vital Signs: Last Vital Signs Temp 98.3 F 08/30/17 09:36 Pulse 100 H 08/30/17 09:36 Resp BP 152/76 H 08/30/17 09:36 Pulse Ox 98 08/30/17 13:02 - Labs Result Diagrams: 08/30/17 11:32 08/30/17 11:32 Labs: Laboratory Results - last 24 hr 08/30/17 08/30/17 08/30/17 11:32 11:32 12:12 WBC 9.4 D RBC 4.84 Hgb 14.1 D Hct 42.2 MCV 87.3 MCH 29.1 MCHC 33.4 RDW 14.3 Plt Count 229 MPV 8.9 Neut % (Auto) 75.3 H Lymph % (Auto) 14.6 L [place] % (Auto) 9.9 Eos % (Auto) 0.0 Baso % (Auto) 0.2 Neut # (Auto) 7.1 H Lymph # (Auto) 1.4 [place] # (Auto) 0.9 H Eos # (Auto) 0.0 Baso # (Auto) 0.0 pO2 17 L VBG pH 7.44 H VBG pCO2 47 VBG HCO3 28.1 VBG Total CO2 33.3 H VBG O2 Sat (Calc) 17.7 L VBG Base Excess 6.6 H VBG Potassium 4.4 Glucose 124 H Lactate 1.7 FiO2 21.0 Sodium 142 141.0 Potassium 4.3 Chloride 99 105.0 Carbon Dioxide 29 Anion Gap 18 BUN 16 Creatinine 0.7 Est GFR ( Amer) > 60 Est GFR (Non-Af Amer) > 60 Random Glucose 116 H Calcium 10.2 Total Bilirubin 1.6 H AST 29 ALT 32 Alkaline Phosphatase 74 Total Protein 8.0 Albumin 4.2 Globulin 3.8 Albumin/Globulin Ratio 1.1 Venous Blood Potassium 4.4 Urine Color Urine Clarity Urine pH Ur Specific [place] Urine Protein Urine Glucose (UA) Urine Ketones Urine Blood Urine Nitrate Urine Bilirubin Urine Urobilinogen Ur Leukocyte Esterase Urine RBC (Auto) Urine Microscopic WBC Ur Squamous Epith Cells Urine Bacteria Urine Yeast (Budding) 08/30/17 12:20 WBC RBC Hgb Hct MCV MCH MCHC RDW Plt Count MPV Neut % (Auto) Lymph % (Auto) [place] % (Auto) Eos % (Auto) Baso % (Auto) Neut # (Auto) Lymph # (Auto) [place] # (Auto) Eos # (Auto) Baso # (Auto) pO2 VBG pH VBG pCO2 VBG HCO3 VBG Total CO2 VBG O2 Sat (Calc) VBG Base Excess VBG Potassium Glucose Lactate FiO2 Sodium Potassium Chloride Carbon Dioxide Anion Gap BUN Creatinine Est GFR ( Amer) Est GFR (Non-Af Amer) Random Glucose Calcium Total Bilirubin AST ALT Alkaline Phosphatase Total Protein Albumin Globulin Albumin/Globulin Ratio Venous Blood Potassium Urine Color [place] Urine Clarity Turbid Urine pH 7.0 Ur Specific [place] 1.010 Urine Protein Negative Urine Glucose (UA) Neg Urine Ketones Negative Urine Blood Small Urine Nitrate Negative Urine Bilirubin Negative Urine Urobilinogen 0.2-1.0 Ur Leukocyte Esterase Small Urine RBC (Auto) 6 H Urine Microscopic WBC 5 Ur Squamous Epith Cells 4 Urine Bacteria Occ H Urine Yeast (Budding) Few H Assessment & Plan - Assessment and Plan (Free Text) Plan: Assessment/Plan 1) Left heel infected wound with secondary cellulitis -looks like pressure blister over left heel that got infected s/p vancomycin ED Podiatry consult appreciated: wound care -D/w ID Dr Reese: recommends c/w vancomycin and genta f/u wound cx, blood cx 2) DM controlled c/w home medications januvia 3) HTN c/w carvedidol. Lisinopril 4)DVT Prophylaxis Lovenox 40 mg sc daily
[2017-08-30] MEDS ORDERED: Gentamicin 80mg/50ml NS 80 MG/50 ML BAG IVPB ONE (16:22)
--- NOTE | 2017-08-30 21:03 | CP.PCM.PN ---
Subjective - Date & Time of Evaluation Date of Evaluation: 08/30/17 Time of Evaluation: 21:03 - Subjective Subjective: I D NOTE DISCUSSED C RESIDENT FORR PRESENT START RX c VANCOMYCIN AND GENTAMICIN Objective - Vital Signs/Intake and Output Vital Signs (last 24 hours): Temp Pulse Resp BP Pulse Ox 98.3 F 85 20 106/65 93 L 08/30/17 17:50 08/30/17 17:50 08/30/17 17:50 08/30/17 17:50 08/30/17 17:50 - Medications Medications: Current Medications Acetaminophen (Tylenol 325mg Tab) 650 mg PO Q6 PRN PRN Reason: Pain, Mild (1-3) Aspirin (Ecotrin) 81 mg PO DAILY [facility] Atorvastatin Calcium (Lipitor) 20 mg PO HS [facility] Carvedilol (Coreg) 12.5 mg PO Q12 [facility] Enoxaparin Sodium (Lovenox) 40 mg SC DAILY [facility] PRN Reason: Protocol Vancomycin HCl 1,000 mg/ (Sodium Chloride) 250 mls @ 166.667 mls/hr IVPB Q12 [facility] PRN Reason: Protocol Gentamicin Sulfate 80 mg/ (Sodium Chloride) 52 mls @ 50.98 mls/hr IVPB DAILY [facility] PRN Reason: Protocol Ketorolac Tromethamine (Toradol) 15 mg IVP Q6 PRN PRN Reason: Pain, moderate (4-7) Last Admin: 08/30/17 20:35 Dose: 15 mg Latanoprost (Xalatan Opht) 1 drop OD HS [facility] Lisinopril (Zestril) 20 mg PO DAILY [facility] Ondansetron HCl (Zofran Inj) 4 mg IVP Q6 PRN PRN Reason: Nausea/Vomiting Oxycodone/Acetaminophen (Percocet 5/325 Mg Tab) 1 tab PO Q4 PRN PRN Reason: Pain, severe (8-10) Stop: 09/02/17 14:44 Silver Sulfadiazine (Silvadene 1% 50 Gm) 1 applic TOP DAILY [facility] Sitagliptin Phosphate (Januvia) 50 mg PO DAILY [facility] - Labs Labs: 08/30/17 11:32 08/30/17 11:32
[2017-08-30] MEDS ORDERED: Fluconazole 150 MG TAB PO ONE (21:40)
[2017-08-30] MEDS ORDERED: Sodium Chloride 0.9% 500 ML IV ONE (21:40)
[2017-08-30] MEDS: Latanoprost 0.005% Opht SOUTION OD SCH (22:01)
--- NOTE | 2017-08-30 22:08 | PCM.RRT ---
<Anayeli Rowland - Last Filed: 08/30/17 22:08> I.Reason for SENIOR CIVIL ENGINEER - A) Acute Change in Patient: Subjective: S: 87 yo F admitted for cellulitis of LLE, SENIOR CIVIL ENGINEER called for hypotension. O: BP: 82/54 mm Hg, HR 98 bpm, T 98.6F, O2 sat 99% Elderly female laying in bed, no acute distress. Able to speak in full sentences , alert. Normal effort of respiration. No CVA tenderness Left foot in dressing. Review of chart- pt here for cellulitis, likely has UTI. Urine culture was ordered in ED; UA showed leukocyte esterase and budding yeast. Repeat BP 99/66mm Hg; Hr 98 bpm, O2 sat 100%. Patient remained stable, alert and awake for the duration or SENIOR CIVIL ENGINEER. A/P: 87 yo F admitted for cellulitis, with likely UTI. SENIOR CIVIL ENGINEER called for hypotension. 500 ml NS bolus Fluconazole Await results of urine cx, continue antibiotics Monitor BPs Notify pt PMD Pt seen and discussed w/ hospitalist Dr. Wheat, who was present for the SENIOR CIVIL ENGINEER. <Renee Wheat - Last Filed: 08/31/17 06:51> SENIOR CIVIL ENGINEER Nurse Assessment - Vital Signs Vital Signs: Rapid Response Vital Sign Blood Pressure 82/54 Pulse Rate 98 Respiratory Rate 16 Temperature 98.6 F Oxygen Saturation 96 - Vital Signs at end of SENIOR CIVIL ENGINEER Vital Signs at end of SENIOR CIVIL ENGINEER: Rapid Response End Vital Sign Blood Pressure 122/44 Pulse Rate 87 Respiratory Rate 18 Temperature 98.6 F O2 Sat by Pulse Oximetry 96 Attending/Attestation - Attestation I have personally seen and examined this patient.: Yes I have fully participated in the care of the patient.: Yes I have reviewed all pertinent clinical information, including history, physical exam and plan: Yes Notes (Text): 08/31/17 06:50 SEEN EXAMINED AND DISCUSSED WITH RESIDENT DR ANAYELI COY. AGREE [facility] FINDINGS AND PLAN ABOVE.
[2017-08-31] MEDS: Sodium Chloride 0.9% 500 ML IV SCH ×2 (00:15→05:51)
--- NOTE | 2017-08-31 07:42 | CP.PCM.PN ---
Subjective - Date & Time of Evaluation Date of Evaluation: 08/31/17 Time of Evaluation: 07:42 - Subjective Subjective: Podiatry Progress note: Dr. Brown 87 year old female was seen and evaluated at bedside for left foot wound s/p bedside I&D. Patient is AAOX3 and is in NAD. Reports of no pain today. States she is feeling well today. No acute overnight events. Denies F/N/V/C/SOB/CP/ headache. No new pedal complains. Objective - Vital Signs/Intake and Output Vital Signs (last 24 hours): Temp Pulse Resp BP Pulse Ox 98.8 F 81 19 114/71 96 08/31/17 00:46 08/31/17 00:46 08/31/17 00:46 08/31/17 00:46 08/31/17 00:46 - Medications Medications: Current Medications Acetaminophen (Tylenol 325mg Tab) 650 mg PO Q6 PRN PRN Reason: Pain, Mild (1-3) Aspirin (Ecotrin) 81 mg PO DAILY [facility] Atorvastatin Calcium (Lipitor) 20 mg PO HS [facility] Last Admin: 08/30/17 22:03 Dose: 20 mg Carvedilol (Coreg) 12.5 mg PO Q12 [facility] Last Admin: 08/30/17 22:00 Dose: Not Given Enoxaparin Sodium (Lovenox) 40 mg SC DAILY [facility] PRN Reason: Protocol Vancomycin HCl 1,000 mg/ (Sodium Chloride) 250 mls @ 166.667 mls/hr IVPB Q12 [facility] PRN Reason: Protocol Last Admin: 08/30/17 22:46 Dose: 166.667 mls/hr Gentamicin Sulfate 80 mg/ (Sodium Chloride) 52 mls @ 50.98 mls/hr IVPB DAILY [facility] PRN Reason: Protocol Sodium Chloride (Sodium Chloride 0.9%) 500 mls @ 75 mls/hr IV .Q6H40M [facility] Last Admin: 08/31/17 05:51 Dose: 75 mls/hr Ketorolac Tromethamine (Toradol) 15 mg IVP Q6 PRN PRN Reason: Pain, moderate (4-7) Last Admin: 08/30/17 20:35 Dose: 15 mg Latanoprost (Xalatan Opht) 1 drop OD [facility] Last Admin: 08/30/17 22:01 Dose: 1 drop Lisinopril (Zestril) 20 mg PO DAILY [facility] Ondansetron HCl (Zofran Inj) 4 mg IVP Q6 PRN PRN Reason: Nausea/Vomiting Oxycodone/Acetaminophen (Percocet 5/325 Mg Tab) 1 tab PO Q4 PRN PRN Reason: Pain, severe (8-10) Stop: 09/02/17 14:44 Silver Sulfadiazine (Silvadene 1% 50 Gm) 1 applic TOP DAILY [facility] Sitagliptin Phosphate (Januvia) 50 mg PO DAILY [facility] - Labs Labs: 08/30/17 11:32 08/30/17 11:32 - Constitutional Appears: Well, Non-toxic, No Acute Distress - Extremities Exam Additional comments: Bilateral LE exam VASC: DP pulses are palpable 2/4, PT pulses are palpable 1/4 on the left and 2/ 4 on the right, Cap refill time: < 3 sec to all digits, Temp gradient: warm to cool from proximal to distal on the right and warm to warm on the left, 1+ pitting edema noted on the distal medial aspect of the left leg accompanied with erythema which extends from the foot up to the ankle level - appears to be resolving from yesterday DERM: Superficial wound measuring approx 4.0 cm x 3.0 cm x 0.1 cm noted on the plantar posterior heel, mild serous drainage, periwound erythema, no purulence, no malodor, no tunneling, no undermining, suspicious of active infection at this time NEURO: Protective sensation mildly diminished, motor sensation grossly intact ORTHO: Pain on palpation of the bullae site, pain during PROM and AROM at the ankle joint - Neurological Exam Neurological Exam: Alert, Awake, Oriented x3 - Psychiatric Exam Psychiatric exam: Normal Affect, Normal Mood Assessment and Plan - Assessment and Plan (Free Text) Assessment: 87 year old female patient was evaluated for left foot 1). underlying infected wound 2). Cellulitis Plan: Patient seen and evaluated Discussed plan with attending Dr. Brown Labs, vitals and charts reviewed - afebrile now, WBC @ 5.4 X-rays of the left foot and ankle ordered/reviewed - no signs of soft tissue emphysema or acute OM Wound cleaned using saline and dressed using silvadine, ABD, DSD Wound cultures taken - pending Received Clinda/vanco while in ED ID on board, f/u recs Multipodus boots to be worn at all times while in bed Offloading heel wedge shoe ordered - weight bearing as tolerated to the forefoot in the shoe using cane or walker Podiatry to follow patient while in-house
[2017-08-31 07:50] LABS: BASO % 0.3 % (0.0-2.0); HEMOGLOBIN 12.9 g/dL (12.0-16.0); LYMPH # 1.2 K/uL (1.0-4.3); MEAN CELL VOLUME 88.4 fl (81.0-99.0); MEAN CORPUSCULAR HEMOGLOBIN 29.5 pg (27.0-31.0); MEAN CORPUSCULAR HGB CONC 33.4 g/dL (33.0-37.0); MONO # 0.6 K/uL (0.0-0.8); MONO % 11.7 % (0.0-10.0); NEUT # 3.6 K/uL (1.8-7.0); NRBC % 0.1 % (0.0-0.0); RBC 4.37 Mil/uL (3.80-5.20); RED CELL DISTRIBUTION WIDTH 14.4 % (11.5-14.5); WHITE BLOOD COUNT 5.4 K/uL (4.8-10.8)
[2017-08-31 08:14] LABS: ALBUMIN 3.4 g/dL (3.5-5.0); ALT/SGPT 32 U/L (9-52); AST/SGOT 23 U/L (14-36); BLOOD UREA NITROGEN 23 mg/dl (7-17); CALCIUM 9.3 mg/dL (8.4-10.2); GFR AFRICAN-AMERICAN > 60; GFR NON-AFRICAN AMERICAN 52
[2017-08-31] MEDS: Enoxaparin 40 mg Syringe SC SCH (08:54)
--- NOTE | 2017-08-31 09:21 | CP.PCM.PN ---
Subjective - Date & Time of Evaluation Date of Evaluation: 08/31/17 Time of Evaluation: 07:30 - Subjective Subjective: Patient seen and examined bedside with Dr reese.Patient reports left leg pain over cellulitis area. Reports she feels weak, and does not want to participate in PT. Patient had [employer] last night due to hypotension. Afebrile, hemodynamically stable. denies chest pain, sob, n,v,ad pain, dysuria PT evaluation pending. wound care by podiatry early this morning. cellulitis area improving Objective - Vital Signs/Intake and Output Vital Signs (last 24 hours): Temp Pulse Resp BP Pulse Ox 97.7 F 82 20 130/75 98 08/31/17 09:00 08/31/17 09:00 08/31/17 09:00 08/31/17 09:00 08/31/17 09:00 - Medications Medications: Current Medications Acetaminophen (Tylenol 325mg Tab) 650 mg PO Q6 PRN PRN Reason: Pain, Mild (1-3) Aspirin (Ecotrin) 81 mg PO DAILY [facility] Last Admin: 08/31/17 08:53 Dose: 81 mg Atorvastatin Calcium (Lipitor) 20 mg PO HS [facility] Last Admin: 08/30/17 22:03 Dose: 20 mg Carvedilol (Coreg) 12.5 mg PO Q12 [facility] Last Admin: 08/31/17 08:53 Dose: 12.5 mg Enoxaparin Sodium (Lovenox) 40 mg SC DAILY [facility] PRN Reason: Protocol Last Admin: 08/31/17 08:54 Dose: 40 mg Vancomycin HCl 1,000 mg/ (Sodium Chloride) 250 mls @ 166.667 mls/hr IVPB Q12 [facility] PRN Reason: Protocol Last Admin: 08/30/17 22:46 Dose: 166.667 mls/hr Gentamicin Sulfate 80 mg/ (Sodium Chloride) 52 mls @ 50.98 mls/hr IVPB DAILY [facility] PRN Reason: Protocol Last Admin: 08/31/17 08:52 Dose: 50.98 mls/hr Sodium Chloride (Sodium Chloride 0.9%) 500 mls @ 75 mls/hr IV .Q6H40M [facility] Last Admin: 08/31/17 05:51 Dose: 75 mls/hr Latanoprost (Xalatan Opht) 1 drop OD HS [facility] Last Admin: 08/30/17 22:01 Dose: 1 drop Lisinopril (Zestril) 20 mg PO DAILY [facility] Last Admin: 08/31/17 08:53 Dose: 20 mg Ondansetron HCl (Zofran Inj) 4 mg IVP Q6 PRN PRN Reason: Nausea/Vomiting Oxycodone/Acetaminophen (Percocet 5/325 Mg Tab) 1 tab PO Q4 PRN PRN Reason: Pain, severe (8-10) Stop: 09/02/17 14:44 Silver Sulfadiazine (Silvadene 1% 50 Gm) 1 applic TOP DAILY [facility] Sitagliptin Phosphate (Januvia) 50 mg PO DAILY [facility] Last Admin: 08/31/17 08:54 Dose: 50 mg Tramadol HCl (Ultram) 50 mg PO Q12 PRN PRN Reason: Pain, moderate (4-7) - Labs Labs: 08/31/17 07:45 08/31/17 07:45 - Constitutional Appears: No Acute Distress - Head Exam Head Exam: ATRAUMATIC, NORMOCEPHALIC - Eye Exam Eye Exam: Normal appearance - ENT Exam ENT Exam: Normal Exam - Neck Exam Neck Exam: Normal Inspection - Respiratory Exam Respiratory Exam: Clear to Ausculation Bilateral. absent: Rales, Rhonchi, Wheezes - Cardiovascular Exam Cardiovascular Exam: REGULAR RHYTHM, +S1, +S2 - GI/Abdominal Exam GI & Abdominal Exam: Soft, Normal Bowel Sounds. absent: Tenderness - Extremities Exam Additional comments: left leg: Area of erythema which extends from the foot up to the ankle level. Superficial wound measuring approx 4.0 cm x 3.0 cm x 0.1 cm noted on the plantar posterior heel, mild serous drainage, periwound erythema, no purulence, no malodor. - Neurological Exam Neurological Exam: Alert, Awake, Oriented x3 - Psychiatric Exam Psychiatric exam: Normal Affect, Normal Mood - Skin Skin Exam: Erythema - Additional Findings Additional findings: distal 1/3 left leg. Assessment and Plan - Assessment and Plan (Free Text) Plan: Assessment/Plan 1) Left heel infected wound with secondary cellulitis s/p vancomycin ED Podiatry consult appreciated: wound care -GFR reduced. Canco trough high -ID Dr Reese: stop vanco/genta. Start clinda/azactam f/u wound cx, blood cx 2) DM controlled c/w home medications januvia 3) HTN c/w carvedidol. Lisinopril 4)DVT Prophylaxis Lovenox 40 mg sc daily
[2017-08-31] MEDS: Silver Sulfadiazine 1% CREAM (50 gm) TOP SCH (09:27)
--- NOTE | 2017-08-31 10:06 | CP.PCM.PN ---
Subjective - Date & Time of Evaluation Date of Evaluation: 08/31/17 Time of Evaluation: 10:01 - Subjective Subjective: I D NOTE RENAL FUNCTION :GFR NOTED HAVE DISCONTINUED GENTAMICIN AND VANCOMYCIN(TROUGH IS ALSO HIGH) STARTED CLINDAMYCIN/AZACTAM CMP ORDERED FOR TOMORROW WBC HAS IMPROVED(9.4 TO 5.4 C DECREASED POLYS Objective - Vital Signs/Intake and Output Vital Signs (last 24 hours): Temp Pulse Resp BP Pulse Ox 97.7 F 82 20 130/75 98 08/31/17 09:00 08/31/17 09:00 08/31/17 09:00 08/31/17 09:00 08/31/17 09:00 - Medications Medications: Current Medications Acetaminophen (Tylenol 325mg Tab) 650 mg PO Q6 PRN PRN Reason: Pain, Mild (1-3) Aspirin (Ecotrin) 81 mg PO DAILY [facility] Last Admin: 08/31/17 08:53 Dose: 81 mg Atorvastatin Calcium (Lipitor) 20 mg PO HS [facility] Last Admin: 08/30/17 22:03 Dose: 20 mg Carvedilol (Coreg) 12.5 mg PO Q12 [facility] Last Admin: 08/31/17 08:53 Dose: 12.5 mg Enoxaparin Sodium (Lovenox) 40 mg SC DAILY [facility] PRN Reason: Protocol Last Admin: 08/31/17 08:54 Dose: 40 mg Sodium Chloride (Sodium Chloride 0.9%) 500 mls @ 75 mls/hr IV .Q6H40M [facility] Last Admin: 08/31/17 05:51 Dose: 75 mls/hr Clindamycin Phosphate (Cleocin) 600 mg in 50 mls @ 50 mls/hr IVPB Q12 [facility] PRN Reason: Protocol Aztreonam 1 gm/ Sodium (Chloride) 100 mls @ 100 mls/hr IVPB Q12 [facility] PRN Reason: Protocol Latanoprost (Xalatan Opht) 1 drop OD HS [facility] Last Admin: 08/30/17 22:01 Dose: 1 drop Lisinopril (Zestril) 20 mg PO DAILY [facility] Last Admin: 08/31/17 08:53 Dose: 20 mg Ondansetron HCl (Zofran Inj) 4 mg IVP Q6 PRN PRN Reason: Nausea/Vomiting Oxycodone/Acetaminophen (Percocet 5/325 Mg Tab) 1 tab PO Q4 PRN PRN Reason: Pain, severe (8-10) Stop: 09/02/17 14:44 Silver Sulfadiazine (Silvadene 1% 50 Gm) 1 applic TOP DAILY [facility] Sitagliptin Phosphate (Januvia) 50 mg PO DAILY [facility] Last Admin: 08/31/17 08:54 Dose: 50 mg Tramadol HCl (Ultram) 50 mg PO Q12 PRN PRN Reason: Pain, moderate (4-7) - Labs Labs: 08/31/17 07:45 08/31/17 07:45
--- NOTE | 2017-08-31 16:01 | US ---
PROCEDURE: Duplex ultrasound of the bilateral lower extremity arteries. HISTORY: cellulitis leg pain COMPARISON: None available. TECHNIQUE: Grayscale and duplex Doppler evaluation of the bilateral common femoral, superficial femoral, popliteal, posterior tibial and dorsalis pedis arteries was performed.. FINDINGS: RIGHT LOWER EXTREMITY: Biphasic waveforms are appreciated throughout the visualized vessels below suggesting potential multifocal severe disease versus high-grade distal aortic or iliac arterial stenoses in the pelvis given similar contralateral arterial spectral pattern. RIGHT COMMON FEMORAL ARTERY: Maximal flow velocity of 142.3 cm/s. RIGHT SUPERFICIAL FEMORAL ARTERY: Maximal flow velocity of 114.4, 105.1, 165.6 cm/s. (Proximal, mid and distal velocities) RIGHT POPLITEAL ARTERY: Maximal flow velocity of 86.6 cm/s. RIGHT POSTERIOR TIBIAL ARTERY: Maximal flow velocity of 35.2 cm/s. RIGHT ANTERIOR TIBIAL ARTERY: Maximal flow velocity of 33.6 centimeter/second. RIGHT DORSALIS PEDIS ARTERY: Maximal flow velocity of 56.0 cm/s. LEFT LOWER EXTREMITY: Biphasic waveforms are appreciated throughout the visualized vessels below suggesting potential multifocal severe disease versus high-grade distal aortic or iliac arterial stenoses in the pelvis given similar contralateral arterial spectral pattern. LEFT COMMON FEMORAL ARTERY: Maximal flow velocity of 103.8 cm/s. LEFT SUPERFICIAL FEMORAL ARTERY: Maximal flow velocity of 105.4, 144.7, 133.1 cm/s. (Proximal, mid and distal velocities) LEFT POPLITEAL ARTERY: Maximal flow velocity of 137.7 cm/s. LEFT POSTERIOR TIBIAL ARTERY: Maximal flow velocity of 25.6 cm/s. LEFT ANTERIOR TIBIAL ARTERY: Maximal flow velocity of 33.6 centimeter/second. LEFT DORSALIS PEDIS ARTERY: Not identified. Artifacts related to bandage obscure this area. OTHER FINDINGS: None. IMPRESSION: Findings suggestive of severe potential aortic iliac arterial stenoses versus advanced arterial disease at the bilateral lower extremity major arteries although a least two-vessel runoff is identified bilaterally. Correlation with conventional, CT or MR angiography is advised.
[2017-08-31] MEDS: Clindamycin 600mg/50ml D5W 600 MG/50 ML VIAL IVPB SCH (20:38)
[2017-08-31] MEDS: Latanoprost 0.005% Opht SOUTION OD SCH (21:01)
[2017-08-31] MEDS: Aztreonam 1 GM in Sodium Chloride 0.9% 100 ML IVPB SCH (21:40)
[2017-09-01] MEDS: Clindamycin 600mg/50ml D5W 600 MG/50 ML VIAL IVPB SCH ×2 (08:58→20:26)
[2017-09-01] MEDS: Enoxaparin 40 mg Syringe SC SCH (08:59)
[2017-09-01] MEDS: Aztreonam 1 GM in Sodium Chloride 0.9% 100 ML IVPB SCH ×2 (10:57→20:25)
[2017-09-01] MEDS: Silver Sulfadiazine 1% CREAM (50 gm) TOP SCH (13:00)
--- NOTE | 2017-09-01 17:06 | CP.PCM.PN ---
Subjective - Date & Time of Evaluation Date of Evaluation: 09/01/17 Time of Evaluation: 14:00 - Subjective Subjective: Podiatry Progress note: Dr. Brown 87F seen and evaluated for left foot wound. Patient resting in bed comfortably, NAD. No acute events overnight. Reports no pain in left heel today. Dressing to left foot clean/dry/intact with multipodus boot present to LLE. Denies F/N/V/C/ SOB/CP/headache. No new pedal complaints. Objective - Vital Signs/Intake and Output Vital Signs (last 24 hours): Temp Pulse Resp BP Pulse Ox 98.1 F 80 20 135/82 96 09/01/17 16:28 09/01/17 16:28 09/01/17 16:28 09/01/17 16:28 09/01/17 16:28 - Medications Medications: Current Medications Acetaminophen (Tylenol 325mg Tab) 650 mg PO Q6 PRN PRN Reason: Pain, Mild (1-3) Aspirin (Ecotrin) 81 mg PO DAILY [facility] Last Admin: 09/01/17 08:59 Dose: 81 mg Atorvastatin Calcium (Lipitor) 20 mg PO HS [facility] Last Admin: 08/31/17 21:01 Dose: 20 mg Carvedilol (Coreg) 12.5 mg PO Q12 [facility] Last Admin: 09/01/17 08:59 Dose: 12.5 mg Enoxaparin Sodium (Lovenox) 40 mg SC DAILY [facility] PRN Reason: Protocol Last Admin: 09/01/17 08:59 Dose: 40 mg Sodium Chloride (Sodium Chloride 0.9%) 500 mls @ 75 mls/hr IV .Q6H40M [facility] Last Admin: 08/31/17 05:51 Dose: 75 mls/hr Clindamycin Phosphate (Cleocin) 600 mg in 50 mls @ 50 mls/hr IVPB Q12 [facility] PRN Reason: Protocol Last Admin: 09/01/17 08:58 Dose: 50 mls/hr Aztreonam 1 gm/ Sodium (Chloride) 100 mls @ 100 mls/hr IVPB Q12 [facility] PRN Reason: Protocol Last Admin: 09/01/17 10:57 Dose: 100 mls/hr Latanoprost (Xalatan Opht) 1 drop OD HS [facility] Last Admin: 08/31/17 21:01 Dose: 1 drop Lisinopril (Zestril) 20 mg PO DAILY [facility] Last Admin: 09/01/17 09:00 Dose: 20 mg Ondansetron HCl (Zofran Inj) 4 mg IVP Q6 PRN PRN Reason: Nausea/Vomiting Oxycodone/Acetaminophen (Percocet 5/325 Mg Tab) 1 tab PO Q4 PRN PRN Reason: Pain, severe (8-10) Stop: 09/02/17 14:44 Silver Sulfadiazine (Silvadene 1% 50 Gm) 1 applic TOP DAILY [facility] Last Admin: 08/31/17 09:27 Dose: 1 applic Sitagliptin Phosphate (Januvia) 50 mg PO DAILY [facility] Last Admin: 09/01/17 08:59 Dose: 50 mg Tramadol HCl (Ultram) 50 mg PO Q12 PRN PRN Reason: Pain, moderate (4-7) Last Admin: 09/01/17 09:04 Dose: 50 mg - Labs Labs: 08/31/17 07:45 08/31/17 07:45 - Constitutional Appears: Well, Non-toxic, No Acute Distress - Extremities Exam Additional comments: Bilateral LE exam VASC: DP pulses are palpable 2/4, PT pulses are palpable 1/4 on the left and 2/ 4 on the right, Cap refill time: < 3 sec to all digits, Temp gradient: warm to cool from proximal to distal on the right and warm to warm on the left, 1+ pitting edema noted on the distal medial aspect of the left leg accompanied with erythema which extends from the foot up to the ankle level - appears to be resolving from yesterday DERM: Superficial wound measuring approx 4.0 cm x 3.0 cm x 0.1 cm noted on the plantar posterior heel, mild serous drainage, periwound erythema present however decreased since initial presentation - currently localized to lateral malleolar region, no purulence, no malodor, no tunneling, no undermining, suspicious of active infection at this time NEURO: Protective sensation mildly diminished, motor sensation grossly intact ORTHO: Pain on palpation of the bullae site, pain during PROM and AROM at the ankle joint - Neurological Exam Neurological Exam: Alert, Awake, Oriented x3 - Psychiatric Exam Psychiatric exam: Normal Affect, Normal Mood Assessment and Plan - Assessment and Plan (Free Text) Assessment: 87 year old female patient was evaluated for left foot 1). underlying infected wound 2). Cellulitis Plan: Patient seen and evaluated alongside attending Dr. Brown Afebrile X-rays of the left foot and ankle ordered/reviewed - no signs of soft tissue emphysema or acute OM Continue local wound care - HENNA Robertson Wound culture left foot - (prelim) no growth Continue abx per ID - Aztreonam, Clindamycin, Multipodus boots to be worn at all times while in bed Offloading heel wedge shoe ordered - weight bearing as tolerated to the forefoot in the shoe using cane or walker Podiatry will continue to follow
[2017-09-01] MEDS: Sodium Chloride 0.9% 500 ML IV SCH (18:08)
[2017-09-01] MEDS: Latanoprost 0.005% Opht SOUTION OD SCH (21:15)
[2017-09-02] MEDS: Sodium Chloride 0.9% 500 ML IV SCH (05:19)
[2017-09-02] MEDS: Clindamycin 600mg/50ml D5W 600 MG/50 ML VIAL IVPB SCH ×2 (08:52→20:24)
[2017-09-02] MEDS: Aztreonam 1 GM in Sodium Chloride 0.9% 100 ML IVPB SCH ×2 (08:52→20:23)
[2017-09-02] MEDS: Enoxaparin 40 mg Syringe SC SCH (09:01)
--- NOTE | 2017-09-02 09:28 | PN ---
DATE: 09/02/2017 SUBJECTIVE: The patient is seen and examined. Consults noted and appreciated. The patient remains in regular medical floor. The patient has cellulitis. The patient feels okay, still complains of leg pain, but it is adequately controlled with current pain medication. No chest pain. No shortness of breath. No . PHYSICAL EXAMINATION: GENERAL: The patient is in no acute distress. VITAL SIGNS: Stable. HEART: S1 and S2, normal and regular. LUNGS: Good bilateral air exchange. ABDOMEN: Soft and nontender. EXTREMITIES: Left lower extremity and foot is under surgical dressing. No sign of complication, distal circulation, neurovascular system seems intact. No edema. No calf swelling. No tenderness. No acute ischemia. CENTRAL NERVOUS SYSTEM: Essentially unchanged. DIAGNOSTIC DATA: Available diagnostic data reviewed. PLAN: Overall, the patient's general medical condition is stable. Plan as ordered. Roc Celis MD
[2017-09-02] MEDS: Silver Sulfadiazine 1% CREAM (50 gm) TOP SCH (09:43)
--- NOTE | 2017-09-02 11:04 | CP.PCM.PN ---
Subjective - Date & Time of Evaluation Date of Evaluation: 09/02/17 Time of Evaluation: 11:04 - Subjective Subjective: Podiatry Progress note: Dr. Brown 87F seen and evaluated for left foot wound. Patient resting in bed comfortably, NAD. No acute events overnight. Offers no complaints to left heel wound today. Dressings clean/dry/intact with multipodus boot present. Denies N/V/F/D/C/SOB/SOLOMON /dizziness. Objective - Vital Signs/Intake and Output Vital Signs (last 24 hours): Temp Pulse Resp BP Pulse Ox 97.6 F 75 20 162/90 H 97 09/02/17 09:00 09/02/17 09:00 09/02/17 09:00 09/02/17 09:00 09/02/17 09:00 - Medications Medications: Current Medications Acetaminophen (Tylenol 325mg Tab) 650 mg PO Q6 PRN PRN Reason: Pain, Mild (1-3) Aspirin (Ecotrin) 81 mg PO DAILY ON LICENSE OF [facility] Last Admin: 09/02/17 08:53 Dose: 81 mg Atorvastatin Calcium (Lipitor) 20 mg PO [facility] Last Admin: 09/01/17 21:20 Dose: Not Given Carvedilol (Coreg) 12.5 mg PO Q12 ON LICENSE OF [facility] Last Admin: 09/02/17 08:54 Dose: 12.5 mg Enoxaparin Sodium (Lovenox) 40 mg SC DAILY ON LICENSE OF [facility] PRN Reason: Protocol Last Admin: 09/02/17 09:01 Dose: 40 mg Sodium Chloride (Sodium Chloride 0.9%) 500 mls @ 75 mls/hr IV .Q6H40M ON LICENSE OF [facility] Last Admin: 09/02/17 05:19 Dose: Not Given Clindamycin Phosphate (Cleocin) 600 mg in 50 mls @ 50 mls/hr IVPB Q12 ON LICENSE OF [facility] PRN Reason: Protocol Last Admin: 09/02/17 08:52 Dose: 50 mls/hr Aztreonam 1 gm/ Sodium (Chloride) 100 mls @ 100 mls/hr IVPB Q12 ON LICENSE OF [facility] PRN Reason: Protocol Last Admin: 09/02/17 08:52 Dose: 100 mls/hr Latanoprost (Xalatan Opht) 1 drop OD [facility] Last Admin: 09/01/17 21:15 Dose: 1 drop Lisinopril (Zestril) 20 mg PO DAILY ON LICENSE OF [facility] Last Admin: 09/02/17 08:53 Dose: 20 mg Ondansetron HCl (Zofran Inj) 4 mg IVP Q6 PRN PRN Reason: Nausea/Vomiting Oxycodone/Acetaminophen (Percocet 5/325 Mg Tab) 1 tab PO Q4 PRN PRN Reason: Pain, severe (8-10) Stop: 09/02/17 14:44 Silver Sulfadiazine (Silvadene 1% 50 Gm) 1 applic TOP DAILY ON LICENSE OF [facility] Last Admin: 09/01/17 13:00 Dose: 1 applic Sitagliptin Phosphate (Januvia) 50 mg PO DAILY ON LICENSE OF [facility] Last Admin: 09/02/17 09:01 Dose: 50 mg Tramadol HCl (Ultram) 50 mg PO Q12 PRN PRN Reason: Pain, moderate (4-7) Last Admin: 09/02/17 09:15 Dose: 50 mg - Labs Labs: 08/31/17 07:45 08/31/17 07:45 - Constitutional Appears: Well, Non-toxic, No Acute Distress - Extremities Exam Additional comments: Bilateral LE exam VASC: DP pulses are palpable 2/4, PT pulses are palpable 1/4 on the left and 2/ 4 on the right, Cap refill time: < 3 sec to all digits, Temp gradient: warm to cool from proximal to distal on the right and warm to warm on the left, 1+ pitting edema noted on the distal medial aspect of the left leg accompanied with erythema which extends from the foot up to the ankle level - resolving DERM: Superficial wound measuring approx 4.0 cm x 3.0 cm x 0.1 cm noted on the plantar posterior heel, minimal serous drainage present, periwound erythema localized to lateral malleolar region, no purulence, no malodor, no tunneling, no undermining, skin erosion periwound NEURO: Protective sensation mildly diminished, motor sensation grossly intact ORTHO: Tenderness to palpation of the bullae site, pain during PROM and AROM at the ankle joint - Neurological Exam Neurological Exam: Alert, Awake, Oriented x3 - Psychiatric Exam Psychiatric exam: Normal Affect, Normal Mood Assessment and Plan - Assessment and Plan (Free Text) Assessment: 87 year old female patient was evaluated for left foot 1). underlying infected wound 2). Cellulitis Plan: Patient seen and evaluated Discussed with attending Dr. Brown Afebrile X-rays of the left foot and ankle = no signs of soft tissue emphysema or acute OM Continue local wound care - Silvadene, DSD Wound culture left foot - coagulase neg staph Continue abx per ID - Aztreonam, Clindamycin Pain control per medicine Multipodus boots to be worn at all times while in bed Offloading heel wedge shoe ordered - weight bearing as tolerated to the forefoot in the shoe using cane or walker Patient may follow up with Dr. Brown in office upon discharge Podiatry will continue to follow
--- NOTE | 2017-09-02 11:42 | CP.PCM.PN ---
Subjective - Date & Time of Evaluation Date of Evaluation: 09/02/17 Time of Evaluation: 11:40 - Subjective Subjective: ID NOTE SOME IMPROVEMENT IN CELLULITIS NOTED CONTINUE SAME RX(CLINDAMYCIN/AZACTAM) Objective - Vital Signs/Intake and Output Vital Signs (last 24 hours): Temp Pulse Resp BP Pulse Ox 97.6 F 75 20 162/90 H 97 09/02/17 09:00 09/02/17 09:00 09/02/17 09:00 09/02/17 09:00 09/02/17 09:00 - Medications Medications: Current Medications Acetaminophen (Tylenol 325mg Tab) 650 mg PO Q6 PRN PRN Reason: Pain, Mild (1-3) Aspirin (Ecotrin) 81 mg PO DAILY COUNTS [facility]CLUDE 234 BEDS AT THE [facility] Last Admin: 09/02/17 08:53 Dose: 81 mg Atorvastatin Calcium (Lipitor) 20 mg PO HS COUNTS INCLUDE 234 BEDS AT THE [facility] Last Admin: 09/01/17 21:20 Dose: Not Given Carvedilol (Coreg) 12.5 mg PO Q12 COUNTS INCLUDE 234 BEDS AT THE [facility] Last Admin: 09/02/17 08:54 Dose: 12.5 mg Enoxaparin Sodium (Lovenox) 40 mg SC DAILY COUNTS INCLUDE 234 BEDS AT THE [facility] PRN Reason: Protocol Last Admin: 09/02/17 09:01 Dose: 40 mg Sodium Chloride (Sodium Chloride 0.9%) 500 mls @ 75 mls/hr IV .Q6H40M COUNTS INCLUDE 234 BEDS AT THE [facility] Last Admin: 09/02/17 05:19 Dose: Not Given Clindamycin Phosphate (Cleocin) 600 mg in 50 mls @ 50 mls/hr IVPB Q12 COUNTS INCLUDE 234 BEDS AT THE [facility] PRN Reason: Protocol Last Admin: 09/02/17 08:52 Dose: 50 mls/hr Aztreonam 1 gm/ Sodium (Chloride) 100 mls @ 100 mls/hr IVPB Q12 COUNTS INCLUDE 234 BEDS AT THE [facility] PRN Reason: Protocol Last Admin: 09/02/17 08:52 Dose: 100 mls/hr Latanoprost (Xalatan Opht) 1 drop OD [facility] Last Admin: 09/01/17 21:15 Dose: 1 drop Lisinopril (Zestril) 20 mg PO DAILY COUNTS INCLUDE 234 BEDS AT THE [facility] Last Admin: 09/02/17 08:53 Dose: 20 mg Ondansetron HCl (Zofran Inj) 4 mg IVP Q6 PRN PRN Reason: Nausea/Vomiting Oxycodone/Acetaminophen (Percocet 5/325 Mg Tab) 1 tab PO Q4 PRN PRN Reason: Pain, severe (8-10) Stop: 09/02/17 14:44 Silver Sulfadiazine (Silvadene 1% 50 Gm) 1 applic TOP DAILY COUNTS INCLUDE 234 BEDS AT THE [facility] Last Admin: 09/01/17 13:00 Dose: 1 applic Sitagliptin Phosphate (Januvia) 50 mg PO DAILY COUNTS INCLUDE 234 BEDS AT THE [facility] Last Admin: 09/02/17 09:01 Dose: 50 mg Tramadol HCl (Ultram) 50 mg PO Q12 PRN PRN Reason: Pain, moderate (4-7) Last Admin: 09/02/17 09:15 Dose: 50 mg - Labs Labs: 08/31/17 07:45 08/31/17 07:45
[2017-09-02] MEDS: Latanoprost 0.005% Opht SOUTION OD SCH (22:21)
--- NOTE | 2017-09-03 07:19 | CP.PCM.PN ---
Subjective - Date & Time of Evaluation Date of Evaluation: 09/03/17 Time of Evaluation: 07:19 - Subjective Subjective: Podiatry Progress note: Dr. Brown 87 year old female patient seen and evaluated for left foot wound. Patient resting in bed comfortably, NAD. No acute events overnight. Offers no complaints to left heel wound today. Dressings clean/dry/intact with multipodus boot present. Denies N/V/F/D/C/SOB/SOLOMON/dizziness. No new pedal complains at this time. Objective - Vital Signs/Intake and Output Vital Signs (last 24 hours): Temp Pulse Resp BP Pulse Ox 98 F 75 20 125/72 96 09/03/17 01:00 09/03/17 01:00 09/03/17 01:00 09/03/17 01:00 09/03/17 01:00 - Medications Medications: Current Medications Acetaminophen (Tylenol 325mg Tab) 650 mg PO Q6 PRN PRN Reason: Pain, Mild (1-3) Aspirin (Ecotrin) 81 mg PO DAILY [facility] Last Admin: 09/02/17 08:53 Dose: 81 mg Atorvastatin Calcium (Lipitor) 20 mg PO HS [facility] Last Admin: 09/02/17 21:19 Dose: Not Given Carvedilol (Coreg) 12.5 mg PO Q12 [facility] Last Admin: 09/02/17 20:24 Dose: 12.5 mg Enoxaparin Sodium (Lovenox) 40 mg SC DAILY [facility] PRN Reason: Protocol Last Admin: 09/02/17 09:01 Dose: 40 mg Sodium Chloride (Sodium Chloride 0.9%) 500 mls @ 75 mls/hr IV .Q6H40M [facility] Last Admin: 09/02/17 05:19 Dose: Not Given Clindamycin Phosphate (Cleocin) 600 mg in 50 mls @ 50 mls/hr IVPB Q12 [facility] PRN Reason: Protocol Last Admin: 09/02/17 20:24 Dose: 50 mls/hr Aztreonam 1 gm/ Sodium (Chloride) 100 mls @ 100 mls/hr IVPB Q12 [facility] PRN Reason: Protocol Last Admin: 09/02/17 20:23 Dose: 100 mls/hr Latanoprost (Xalatan Opht) [address] [facility] Last Admin: 05/13/18 22:21 Dose: 1 drop Lisinopril (Zestril) 20 mg PO DAILY [facility] Last Admin: 09/02/17 08:53 Dose: 20 mg Ondansetron HCl (Zofran Inj) 4 mg IVP Q6 PRN PRN Reason: Nausea/Vomiting Silver Sulfadiazine (Silvadene 1% 50 Gm) 1 applic TOP DAILY [facility] Last Admin: 09/02/17 09:43 Dose: 1 applic Sitagliptin Phosphate (Januvia) 50 mg PO DAILY [facility] Last Admin: 09/02/17 09:01 Dose: 50 mg Tramadol HCl (Ultram) 50 mg PO Q12 PRN PRN Reason: Pain, moderate (4-7) Last Admin: 09/02/17 21:07 Dose: 50 mg - Labs Labs: 08/31/17 07:45 08/31/17 07:45 - Constitutional Appears: Well, Non-toxic, No Acute Distress - Extremities Exam Additional comments: Bilateral LE exam VASC: DP pulses are palpable 2/4, PT pulses are palpable 1/4 on the left and 2/ 4 on the right, Cap refill time: < 3 sec to all digits, Temp gradient: warm to cool from proximal to distal on the right and warm to warm on the left, 1+ pitting edema noted on the distal medial aspect of the left leg accompanied with erythema which extends from the foot up to the ankle level - resolving DERM: Superficial wound measuring approx 4.0 cm x 3.0 cm x 0.1 cm noted on the plantar posterior heel, minimal serous drainage present, periwound erythema localized to lateral malleolar region, no purulence, no malodor, no tunneling, no undermining, skin erosion periwound NEURO: Protective sensation mildly diminished, motor sensation grossly intact ORTHO: Tenderness to palpation of the bullae site, pain during PROM and AROM at the ankle joint - Neurological Exam Neurological Exam: Alert, Awake, Oriented x3 - Psychiatric Exam Psychiatric exam: Normal Affect, Normal Mood Assessment and Plan - Assessment and Plan (Free Text) Assessment: 87 year old female patient was evaluated for left foot 1). underlying infected wound 2). Cellulitis Plan: Patient seen and evaluated Discussed with attending Dr. Brown Afebrile X-rays of the left foot and ankle = no signs of soft tissue emphysema or acute OM Continue local wound care - Silvadene, DSD Wound culture left foot - coagulase neg staph Continue abx per ID - Aztreonam, Clindamycin Pain control per medicine Multipodus boots to be worn at all times while in bed Offloading heel wedge shoe ordered - weight bearing as tolerated to the forefoot in the shoe using cane or walker Stable from podiatry standpoint - Patient may follow up with Dr. Brown in office upon discharge Podiatry will continue to follow
[2017-09-03 07:41] LABS: ALB/GLOB RATIO 1.1 (1.0-2.1); ALBUMIN 3.6 g/dL (3.5-5.0); ALT/SGPT 37 U/L (9-52); AST/SGOT 30 U/L (14-36); BLOOD UREA NITROGEN 19 mg/dl (7-17); CALCIUM 9.6 mg/dL (8.4-10.2); GFR AFRICAN-AMERICAN > 60; GFR NON-AFRICAN AMERICAN > 60
[2017-09-03 07:42] LABS: HEMOGLOBIN 12.6 g/dL (12.0-16.0); MEAN CELL VOLUME 87.2 fl (81.0-99.0); MEAN CORPUSCULAR HEMOGLOBIN 29.4 pg (27.0-31.0); MEAN CORPUSCULAR HGB CONC 33.7 g/dL (33.0-37.0); RBC 4.29 Mil/uL (3.80-5.20); RED CELL DISTRIBUTION WIDTH 14.7 % (11.5-14.5); WHITE BLOOD COUNT 5.5 K/uL (4.8-10.8)
[2017-09-03 08:00] VITALS: BP 128/72; PULSE 74; RESP 18; TEMP 98.5
--- NOTE | 2017-09-03 09:17 | PN ---
DATE: 09/03/2017 SUBJECTIVE: The patient is seen and examined. Interim events noted. Consults noted and appreciated. Podiatry and surgical followup and interventions noted and appreciated. The patient remains in regular medical floor. The patient feels much better. Pain much improved. No chest pain, no shortness of breath or any other side effects of medication related complaints. PHYSICAL EXAMINATION: GENERAL: The patient is in no acute distress. VITAL SIGNS: Stable. HEART: S1 and S2, normal and regular. LUNGS: Good bilateral air exchange. ABDOMEN: Soft and nontender. EXTREMITIES: Left lower extremity is in surgical dressing. No sign of distal neurovascular compromise. No edema. No calf swelling. No tenderness. No acute ischemia. CENTRAL NERVOUS SYSTEM: Essentially unchanged. DIAGNOSTIC DATA: Available diagnostic data reviewed. PLAN: Overall, the patient's general medical condition is stable. Cellulitis is improving. Plan as ordered. Roc Celis MD
[2017-09-03] MEDS: Aztreonam 1 GM in Sodium Chloride 0.9% 100 ML IVPB SCH (10:08)
[2017-09-03] MEDS: Clindamycin 600mg/50ml D5W 600 MG/50 ML VIAL IVPB SCH (10:09)
[2017-09-03] MEDS: Enoxaparin 40 mg Syringe SC SCH (10:10)
[2017-09-03] MEDS: Silver Sulfadiazine 1% CREAM (50 gm) TOP SCH (10:11)
--- NOTE | 2017-09-04 09:12 | PQF DECUBI ---
Dr. Horn History and Physical documented "pressure blister over left heel." Please clarify stage below and indicate site. This form is a permanent part of the medical record Clarification of your documentation is requested to better reflect the severity of illness and intensity of treatment of your patient. Indicators present [x] Documented diagnosis of decubitus/pressure ulcer Location in the medical record that reflects the above clinical findings: [] Treatment Provided: PHYSICIAN'S RESPONSE Based on your medical judgment can you define the stage of the decubitus/ pressure ulcer as: Present On Admission [] Stage 1 Pressure Ulcer: Specify Location: [] Yes [] No Intact Skin with non-blanching erhythema (reddened area on skin) Painful or Itchy When compared to adjacent tissue may be firmer/softer or warmer/cooler [] Stage 2 Pressure Ulcer: Specify Location: []Yes []No Partial thickness loss of dermis Abrasion, blister or shallow open crater Red/pink wound bed without slough [] Stage 3 Pressure Ulcer: Specify Location: []Yes [] No Full thickness skin loss (bone, tendon, muscle are not exposed) Damage or necrosis into subcutaneous soft tissues Slough present but does not obscure the depth of tissue loss Undermining and/or tunneling [] Stage 4 Pressure Ulcer: Specify Location: []Yes [] No Full thickness skin loss with exposed bone, tendon or muscle Slough Undermining and/or tunneling Extend into muscle and/or supporting structure (e.g. fascia, tendon, or joint capsule) [] Unstageable: Specify Location: [] []Yes [] No In responding to this query, please exercise your independent professional judgment. The fact that a question is asked does not imply that any particular answer is desired or expected. Thank you for your clarification on this documentation. If you have any questions please call:[ ] * Thank you, [ ]Afshan Galdamez trust evaluation supervisor ZANE
[2017-09-04 18:36] VITALS: O2SAT 98
== END 2017-09-03 14:57 | disposition home health service (06) | DRG 603 ==
LOC: H.ER 09:32 → H.ERHOLD 12:59 → H.MEDSURG1 16:40
PROVIDERS: ADMIT Family Medicine; ATTEND Family Medicine
PROC: 0Y9N0ZZ Drainage of Left Foot, Open Approach (ICD-10-PCS; principal; 2017-08-30)
DX: L03.116 Cellulitis of left lower limb (principal); I10 Essential (primary) hypertension; E78.5 Hyperlipidemia, unspecified; E11.9 Type 2 diabetes mellitus without complications; Z88.0 Allergy status to penicillin; F32.9 Major depressive disorder, single episode, unspecified; I25.10 Atherosclerotic heart disease of native coronary artery without angina pectoris; M19.90 Unspecified osteoarthritis, unspecified site; Z95.0 Presence of cardiac pacemaker; F41.9 Anxiety disorder, unspecified; E78.00 Pure hypercholesterolemia, unspecified; I95.9 Hypotension, unspecified; B95.7 Other staphylococcus as the cause of diseases classified elsewhere; R23.8 Other skin changes; S90.822A Blister (nonthermal), left foot, initial encounter

== ENCOUNTER 2017-12-19 12:56 | Emergency (ER) | payer MEDICARE, BC ==
[2017-12-19 12:59] VITALS: BMI 28.3
[2017-12-19 13:09] VITALS: TEMP 98.7
[2017-12-19] MEDS ORDERED: Sodium Chloride 0.9% 1,000 ML IV STA (13:17)
[2017-12-19 13:48] LABS: BASO % 0.3 % (0.0-2.0); HEMOGLOBIN 12.4 g/dL (12.0-16.0); LYMPH # 1.2 K/uL (1.0-4.3); LYMPH % 15.4 % (20.0-40.0); MEAN CELL VOLUME 90.2 fl (81.0-99.0); MEAN CORPUSCULAR HEMOGLOBIN 30.2 pg (27.0-31.0); MEAN CORPUSCULAR HGB CONC 33.4 g/dL (33.0-37.0); MEAN PLATELET VOLUME 8.7 fl (7.2-11.7); MONO # 0.6 K/uL (0.0-0.8); MONO % 7.9 % (0.0-10.0); NEUT % 76.4 % (50.0-75.0); NRBC % 0.1 % (0.0-0.0); RBC 4.11 Mil/uL (3.80-5.20); RED CELL DISTRIBUTION WIDTH 14.1 % (11.5-14.5); WHITE BLOOD COUNT 7.8 K/uL (4.8-10.8)
[2017-12-19 13:54] LABS: INR 1.2; PROTHROMBIN TIME 13.1 Seconds (9.8-13.1)
[2017-12-19 13:57] LABS: PARTIAL THROMBOPLASTIN TIME 31.9 Seconds (25.6-37.1)
[2017-12-19 14:16] LABS: ALB/GLOB RATIO 1.2 (1.0-2.1); ALT/SGPT 23 U/L (9-52); AST/SGOT 24 U/L (14-36); B-TYPE NATRIURETIC PEPTIDE 220 pg/ml (0-900); BLOOD UREA NITROGEN 20 mg/dl (7-17); CALCIUM 9.6 mg/dL (8.4-10.2); GFR NON-AFRICAN AMERICAN 59
--- NOTE | 2017-12-19 14:59 | ED PDOC ---
HPI: CCC, URI, Sore Throat Time Seen by Provider: 12/19/17 13:16 Chief Complaint (Nursing): Weakness/Neurological Deficit Chief Complaint (Provider): productive cough, generalizes weakness and sore throat History Per: Patient History/Exam Limitations: no limitations Onset/Duration Of Symptoms: Days (several) Current Symptoms Are (Timing): Still Present Associated Symptoms: Sore Throat, Cough, Sputum. denies: Vomiting, Diarrhea Ear Symptoms: Bilateral: None Additional Complaint(s): Aurea Enriquez is an 87 year old female, with a past medical history of diabetes, HTN, hypercholesterolemia and with pacemaker, who presents to the emergency department upon recommendation of PMD, Dr. Horn, and has noted cough with productive sputum onset for several days associated with generalized weakness and sore throat. Patient took her cough medications with mild improvement. She denies any syncope, chest pain, orthopnea, edema, urinary symptoms, vomiting or diarrhea. No further medical complaints. PMD: Ramsey Horn Past Medical History Reviewed: Historical Data, Nursing Documentation, Vital Signs Vital Signs: Last Vital Signs Temp 98.7 F 12/19/17 17:17 Pulse 78 12/19/17 17:17 Resp 18 12/19/17 17:17 BP 132/79 12/19/17 17:17 Pulse Ox 96 12/19/17 17:32 - Medical History PMH: Anxiety, Arthritis, CAD, Depression, Diabetes, Fractures, HTN, Hypercholesterolemia, Peripheral Edema Denies: Alzheimer's Disease, Anemia, Asthma, Atrial Fibrillation, Bronchitis , Cardia Arrhythmia, CHF, COPD, Dementia, Emphysema, HIV, Hyperthyroidism, Hypothyroidism, Kidney Stones, Migraine, Mitral Valve Prolapse, Multiple Sclerosis, Parkinson's Disease, Pneumonia, Pulmonary Embolism, Chronic Kidney Disease, Seizures, Sickle Cell Disease, Sleep Apnea, TIA - Surgical History Surgical History: Appendectomy, Pacemaker Denies: CABG - Family History Family History: States: Unknown Family Hx - Living Arrangements Living Arrangements: Alone (with aid) - Social History Current smoker - smoking cessation education provided: No - Home Medications Home Medications: Ambulatory Orders Medication Instructions Recorded Aspirin [Ecotrin] 81 mg PO DAILY 08/30/17 Carvedilol [Coreg] 12.5 mg PO Q12 08/30/17 Ergocalciferol (Vitamin D2) 50,000 unit PO SAT 08/30/17 [Vitamin D2] Fesoterodine Fumarate [Toviaz] 4 mg PO DAILY 08/30/17 Latanoprost [Xalatan] 1 drop EACHEYE HS 08/30/17 Lidocaine 5% [Lidoderm] 1 patch TD DAILY PRN 08/30/17 Linagliptin [Tradjenta] 5 mg PO DAILY 08/30/17 Lisinopril [Zestril] 20 mg PO DAILY 08/30/17 Rosuvastatin Calcium [Crestor] 10 mg PO HS 08/30/17 traMADol [Ultram] 50 mg PO Q12 08/30/17 Cetirizine HCl [Zyrtec] 10 mg PO DAILY #7 capsule 12/19/17 - Allergies Allergies/Adverse Reactions: Allergies Allergy/AdvReac Type Severity Reaction Status Date / Time Penicillins Allergy RASH Verified 12/19/17 13:04 Review of Systems ROS Statement: Except As Marked, All Systems Reviewed And Found Negative Constitutional: Positive for: Malaise ENT: Positive for: Throat Pain Cardiovascular: Negative for: Chest Pain, Orthopnea Respiratory: Positive for: Cough Gastrointestinal: Negative for: Vomiting, Diarrhea Genitourinary Female: Negative for: Dysuria, Frequency Neurological: Positive for: Dizziness Physical Exam - Reviewed Nursing Documentation Reviewed: Yes Vital Signs Reviewed: Yes - Physical Exam Appears: Positive for: No Acute Distress (elderly and generally weak appearance) Head Exam: Positive for: ATRAUMATIC, NORMAL INSPECTION, NORMOCEPHALIC Skin: Positive for: Normal Color, Warm, Dry Eye Exam: Positive for: Normal appearance, EOMI, PERRL ENT: Positive for: Normal ENT Inspection Neck: Positive for: Painless ROM Cardiovascular/Chest: Positive for: Regular Rate, Rhythm. Negative for: Murmur Respiratory: Positive for: Normal Breath Sounds. Negative for: Respiratory Distress Gastrointestinal/Abdominal: Positive for: Normal Exam, Soft. Negative for: Tenderness Back: Positive for: Normal Inspection Extremity: Positive for: Normal ROM (upper and lower extremities). Negative for : Tenderness, Deformity, Swelling Neurologic/Psych: Positive for: Alert, Oriented - Laboratory Results Result Diagrams: 12/19/17 13:40 12/19/17 13:40 - ECG O2 Sat by Pulse Oximetry: 96 (RA) Pulse Ox Interpretation: Normal Medical Decision Making Medical Decision Making: Time: 13:16 Initial Impression: Initial Plan: --EKG --B-Type Natriuretic Peptide --CMP --CPK --Magnesium --Phosphorus --Troponin I --CBC w/ differential --PTT --PT --Chest two views (PA/LAT) [RAD] --Sodium Chloride 1,000 ml IV 100 mls/hr --Urinalysis --Reevaluation EKG: Ventricular paced @ 84bpm. -CXR read by me, no acute infiltrate. -Blood work reviewed and only revealed mild dehydration. Patient started on IV fluids and will discharge with Dr. Horn. case d/w PMD Dr Horn, given unremarkable workup, patient appears well, she wants to go home, will DC to followup sunday in office for re-eval/ ----- Scribe Attestation: Documented by Oni Hughes, acting as a scribe for Eddie Leon DO. Provider Scribe Attestation: All medical record entries made by the Scribe were at my direction and personally dictated by me. I have reviewed the chart and agree that the record accurately reflects my personal performance of the history, physical exam, medical decision making, and the department course for this patient. I have also personally directed, reviewed, and agree with the discharge instructions and disposition. Disposition - Clinical Impression Clinical Impression: Congestion of upper airway - Patient ED Disposition Is Patient to be Admitted: No - Disposition Referrals: Ramsey Horn MD [Staff Provider] - Disposition: Routine/Home Disposition Time: 17:01 Condition: STABLE Additional Instructions: See Dr Horn on sunday at 2pm. Return to ER for any worse or new symptoms. Caution using Zyrtec, stop using if creates dizziness, nausea or somnolence. Prescriptions: Cetirizine HCl [Zyrtec] 10 mg PO DAILY #7 capsule Instructions: Viral Upper Respiratory Infection, Adult (DC) Forms: [employer] ([employer])
--- NOTE | 2017-12-19 15:32 | RAD ---
Date of service: 12/19/2017 HISTORY: chest pain/ r/o infiltrate COMPARISON: 08/30/2017 TECHNIQUE: Chest PA and lateral FINDINGS: LUNGS: No active pulmonary disease. PLEURA: No significant pleural effusion identified. No pneumothorax apparent. CARDIOVASCULAR: Permanent pacemaker. Normal heart size. No congestive change. OSSEOUS STRUCTURES: No significant abnormalities. VISUALIZED UPPER ABDOMEN: Normal. OTHER FINDINGS: None. IMPRESSION: No active disease.
[2017-12-19 16:20] LABS: SQUAMOUS EPITHIAL 41 /hpf (0-5); WBC CLUMPS MANY /hpf
[2017-12-19 16:28] LABS: URINE BILIRUBIN NEGATIVE (NEGATIVE); URINE BLOOD SMALL (NEGATIVE); URINE CLARITY TURBID (Clear); URINE COLOR YELLOW (YELLOW); URINE GLUCOSE (UA) 150 mg/dL (Normal); URINE LEUKOCYTE ESTERASE MOD Leu/uL (Negative); URINE PROTEIN >=500 mg/dL (NEGATIVE); URINE UROBILINOGEN 0.2-1.0 mg/dL (0.2-1.0)
[2017-12-19 17:17] VITALS: BP 132/79; PULSE 78; RESP 18
[2017-12-19 17:32] VITALS: O2SAT 96
--- NOTE | 2017-12-20 08:51 | CARD ---
APPROVED REPORT Date of service: 12/19/2017 <Conclusion> Ventricular-paced rhythm Abnormal ECG
== END 2017-12-19 17:25 | disposition home or self-care (01) ==
LOC: H.ER 12:56
DX: R09.89 Other specified symptoms and signs involving the circulatory and respiratory systems (principal); E11.9 Type 2 diabetes mellitus without complications; I10 Essential (primary) hypertension; Z86.59 Personal history of other mental and behavioral disorders; Z88.0 Allergy status to penicillin; Z95.0 Presence of cardiac pacemaker; E86.0 Dehydration; Z79.82 Long term (current) use of aspirin
CPT/HCPCS: 71046; 80053; 81003; 82550; 82948; 83735; 83880; 84100; 84484; 85025; 85610; 85730; 93005; 96360; 96361; 99284; J7030